=== PATIENT | female | born 1965 | race African-American/Black ===

== ENCOUNTER 2024-02-23 02:49 | Inpatient (IN) | payer MEDICARE, MEDICAID ==
[~2024-02-23] VITALS: Ht 157.5 cm; Wt 60.8 kg
[~2024-02-23 02:49] MED LIST: AMLO5TAB88 PO; COR12 PO; HYDR-4009 MT; LANTUSUD SUBCUT; LOSA50TA41 PO; METF-414 MT
[2024-02-23 02:57] VITALS: O2SAT 100
[2024-02-23 03:58] LABS: BASOPHILS % 0.9 % (0.0-2.0); EOSINOPHILS % 1.2 % (0.0-5.0); HEMATOCRIT. 36.4 % (36.0-48.0); HEMOGLOBIN. 12.1 g/dL (12.0-16.0); LYMPHOCYTES % 33.5 % (20.0-50.0); MEAN CORPUSCULAR HEMOGLOBIN 28.3 pg (28.0-32.0); MEAN CORPUSCULAR HGB CONC 33.2 g/dL (31.0-37.0); MEAN CORPUSCULAR VOLUME 85.1 fL (81.0-99.0); MEAN PLATELET VOLUME 8.8 fl (7.4-10.4); MONOCYTES % 7.9 % (2.0-8.0); NEUTROPHILS % 56.5 % (40.0-76.0); PLATELET 152 x1000/uL (130-400); RED BLOOD CELL COUNT 4.28 mill/uL (4.2-5.4); RED CELL DISTRIBUTION WIDTH 14.7 % (11.6-14.6); WHITE BLOOD COUNT 4.8 x1000/uL (4.5-11.0)
[2024-02-23 04:06] LABS: INR 0.9; PARTIAL THROMBOPLASTIN TIME 22.8 sec (23.4-31.0)
[2024-02-23 04:15] LABS: LACTIC ACID 2.7 mmol/L (0.4-2.0)
[2024-02-23 04:18] LABS: ALANINE AMINOTRANSFERASE 107 IU/L (10-49); ALBUMIN 4.3 g/dL (3.2-4.8); ASPARTATE AMINOTRANSFERASE 117 IU/L (<34); BILIRUBIN TOTAL < 0.2 mg/dL (0.1-1.0); CARBON DIOXIDE 24 mEq/L (21-32); CHLORIDE 101 mEq/L (98-107); POTASSIUM 3.9 mEq/L (3.5-5.1); PROTEIN TOTAL 7.3 g/dL (6.0-8.3); SODIUM 133 mEq/L (136-145); UREA NITROGEN BLOOD 16 mg/dL (9-23)
[2024-02-23 04:35] LABS: ETHANOL BLOOD < 10 mg/dL (<10)
[2024-02-23 04:38] LABS: GLUCOSE 403 mg/dL (70-105); TROPONIN I HIGH SENSITIVITY 51 ng/L (3.0-34)
[2024-02-23 04:43] LABS: CLARITY URINE CLOUDY (CLEAR); COLOR URINE YELLOW (YELLOW); GLUCOSE URINE 3+ (NEGATIVE); KETONES URINE NEGATIVE (NEGATIVE); LEUKOCYTE ESTERASE URINE 1+ (NEGATIVE); NITRITE URINE NEGATIVE (NEGATIVE); OCCULT BLOOD URINE 1+ (NEGATIVE); PH URINE 6.5 (4.5-8.0); PROTEIN URINE 3+ (NEGATIVE); SPECIFIC GRAVITY URINE 1.021 (1.005-1.030); UROBILINOGEN URINE 0.2 E.U./dL (0.2-1.0)
[2024-02-23 05:12] LABS: *AMPHETAMINES SCREEN URINE NEGATIVE (NEGATIVE); *BARBITURATES SCREEN URINE NEGATIVE (NEGATIVE); *BENZODIAZEPINES SCREEN URINE NEGATIVE (NEGATIVE); *COCAINE SCREEN URINE NEGATIVE (NEGATIVE); CANNABINOID URINE SCREEN NEGATIVE (NEGATIVE); ECSTASY MDMA SCREEN URINE NEGATIVE (NEGATIVE); METHADONE URINE SCREEN Neg (NEGATIVE); OPIATES URINE SCREEN NEGATIVE (NEGATIVE); PHENCYCLIDINE URINE SCREEN NEGATIVE (NEGATIVE)
[2024-02-23] MEDS: ASPIRIN 81MG TABLET PO NR (05:17)
[2024-02-23] MEDS: INSULIN REGULAR (HUMULIN R) 300UNITS/3ML VIAL SUBCUT NR ×2 (06:00→09:14)
[2024-02-23] MEDS ORDERED: IPRATROPIUM/ALBUTEROL 0.5-3(2.5)MG/3ML NEB HHN PRN (06:00)
[2024-02-23] MEDS ORDERED: ACETAMINOPHEN 325MG TABLET PO PRN ×2 (06:00→07:15)
[2024-02-23 06:23] LABS: WBC URINE TNTC /hpf (0-2)
[2024-02-23 06:24] LABS: BACTERIA URINE TRACE; SQUAMOUS EPITHELIAL CELL URINE 1+ /lpf (RARE/1+); YEAST URINE 3+
[2024-02-23] MEDS ORDERED: DEXTROSE 50% WATER 50ML SYRINGE IV PRN (06:30)
[2024-02-23] MEDS: PIPERACILLIN/TAZO 3.375G/50ML 50 ML IV SCH ×2 (07:15→13:58)
[2024-02-23 08:13] LABS: BASOPHILS % 0.5 % (0.0-2.0); EOSINOPHILS % 1.3 % (0.0-5.0); HEMATOCRIT. 34.9 % (36.0-48.0); HEMOGLOBIN. 11.6 g/dL (12.0-16.0); LYMPHOCYTES % 37.7 % (20.0-50.0); MEAN CORPUSCULAR HEMOGLOBIN 28.2 pg (28.0-32.0); MEAN CORPUSCULAR HGB CONC 33.4 g/dL (31.0-37.0); MEAN CORPUSCULAR VOLUME 84.7 fL (81.0-99.0); MEAN PLATELET VOLUME 8.3 fl (7.4-10.4); MONOCYTES % 6.8 % (2.0-8.0); NEUTROPHILS % 53.7 % (40.0-76.0); PLATELET 160 x1000/uL (130-400); RED BLOOD CELL COUNT 4.12 mill/uL (4.2-5.4); RED CELL DISTRIBUTION WIDTH 14.4 % (11.6-14.6); WHITE BLOOD COUNT 5.4 x1000/uL (4.5-11.0)
[2024-02-23 08:26] LABS: ALANINE AMINOTRANSFERASE 104 IU/L (10-49); ALBUMIN 4.1 g/dL (3.2-4.8); ASPARTATE AMINOTRANSFERASE 95 IU/L (<34); BILIRUBIN TOTAL 0.2 mg/dL (0.1-1.0); CALCIUM 8.8 mg/dL (8.7-10.4); CARBON DIOXIDE 26 mEq/L (21-32); CHLORIDE 104 mEq/L (98-107); CHOLESTEROL 182 mg/dL (<200); CREATININE 0.8 mg/dL (0.6-1.0); GLUCOSE 259 mg/dL (70-105); HDL CHOLESTEROL 43 mg/dL (>65); LDL CHOLESTEROL 115 mg/dL (5-100); PHOSPHORUS 1.9 mg/dL (2.5-4.9); POTASSIUM 3.3 mEq/L (3.5-5.1); SODIUM 135 mEq/L (136-145); T4 FREE 1.02 ng/dL (0.89-1.76); THYROID STIMULATING HORMONE 3.51 uIU/mL (0.55-4.78); TRIGLYCERIDE 199 mg/dL (0-150); UREA NITROGEN BLOOD 16 mg/dL (9-23)
[2024-02-23] MEDS: VANCOMYCIN 1.5GM/250ML 250 ML IV SCH (08:44)
[2024-02-23] MEDS: ENOXAPARIN 40MG/0.4ML SYR SUBCUT SCH (08:44)
[2024-02-23] MEDS: LOSARTAN 50 MG TABLET PO SCH (08:44)
[2024-02-23] MEDS: PANTOPRAZOLE SODIUM 40 MG/VIAL IV SCH (08:44)
[2024-02-23] MEDS: AMLODIPINE 5MG TABLET PO SCH (08:44)
[2024-02-23] MEDS: BLOOD SUGAR DIAGNOSTIC STRIP TEST SCH (08:45)
[2024-02-23] MEDS: INSULIN LISPRO 100 UNITS/ML SUBCUT SCH ×2 (09:10→18:36)
[2024-02-23] MEDS: SODIUM CHLORIDE 0.9% 1,000 ML IV SCH (11:01)
[2024-02-23] MEDS: CLONIDINE 0.1MG TABLET PO PRN (11:25)
[2024-02-23] MEDS: KETOROLAC 15MG/ML VIAL IV PRN ×2 (11:25→18:35)
[2024-02-23 13:30] VITALS: BP 173/90; PULSE 78; RESP 20; TEMP 97.9; TEMP 98.2
[2024-02-23 16:00] VITALS: BP 140/81; PULSE 82; RESP 20; TEMP 97.9
[2024-02-23] MEDS: POTASSIUM CHLORIDE 20MEQ TABLET SR PO NR (18:32)
[2024-02-23 20:00] VITALS: BP 137/77; PULSE 81; RESP 19; TEMP 99.1
[2024-02-23 21:06] LABS: CREATINE KINASE MB FRACTION 3.9 ng/mL (0.5-3.6)
[2024-02-23] MEDS: MAGNESIUM 2 G PREMIX 50 ML IV NR (21:34)
[2024-02-23] MEDS: VANCOMYCIN 750MG PREMIX 150 ML IV SCH (21:34)
[2024-02-23] MEDS ORDERED: INSULIN GLARGINE 100 UNITS/ML SUBCUT SCH (22:00)
[2024-02-23] MEDS: INSULIN GLARGINE 100 UNITS/ML SUBCUT SCH (22:08)
[2024-02-23] MEDS: POTASSIUM PHOSPHATE 15 MMOL in DEXT 5% WATER 245 ML IV NR (23:04)
[2024-02-24] VITALS (7 sets, daily range): BP systolic 101–195; BP diastolic 51–103; PULSE 71–88; RESP 18–20; TEMP 97.1–99
[2024-02-24 12:12] LABS: CREATINE KINASE MB FRACTION 2.9 ng/mL (0.5-3.6)
[2024-02-24] MEDS: HYDRALAZINE HCL 25MG TABLET PO SCH (18:26)
[2024-02-24] MEDS: ASPIRIN 81MG TABLET PO SCH (18:26)
[2024-02-24] MEDS: FLUCONAZOLE 150MG TABLET PO NR (19:35)
[2024-02-24 21:14] LABS: CHLORIDE 105 mEq/L (98-107); POTASSIUM 4.5 mEq/L (3.5-5.1); SODIUM 135 mEq/L (136-145)
[2024-02-24 21:15] LABS: CALCIUM 8.6 mg/dL (8.7-10.4); CARBON DIOXIDE 26 mEq/L (21-32)
[2024-02-24 21:20] LABS: CREATININE 0.9 mg/dL (0.6-1.0); GLUCOSE 85 mg/dL (70-105); UREA NITROGEN BLOOD 22 mg/dL (9-23)
[2024-02-24 21:21] LABS: ALANINE AMINOTRANSFERASE 68 IU/L (10-49); ASPARTATE AMINOTRANSFERASE 55 IU/L (<34)
[2024-02-24 21:22] LABS: ALBUMIN 3.5 g/dL (3.2-4.8); BILIRUBIN TOTAL 0.2 mg/dL (0.1-1.0); PROTEIN TOTAL 6.1 g/dL (6.0-8.3)
[2024-02-24] MEDS: ATORVASTATIN CALCIUM 40MG TABLET PO SCH (21:36)
[2024-02-24] MEDS: CARVEDILOL 3.125 MG TABLET PO SCH (21:36)
[2024-02-24] MEDS: INSULIN GLARGINE 100 UNITS/ML SUBCUT SCH (23:54)
[2024-02-25] VITALS: BP 170/83; PULSE 77; RESP 16; TEMP 97.1
[2024-02-25 04:00] VITALS: BP 164/81; PULSE 83; RESP 19; TEMP 97.5
[2024-02-25 06:21] LABS: BASOPHILS % 0.3 % (0.0-2.0); EOSINOPHILS % 1.3 % (0.0-5.0); HEMATOCRIT. 32.3 % (36.0-48.0); HEMOGLOBIN. 10.9 g/dL (12.0-16.0); LYMPHOCYTES % 28.2 % (20.0-50.0); MEAN CORPUSCULAR HEMOGLOBIN 29.1 pg (28.0-32.0); MEAN CORPUSCULAR HGB CONC 33.9 g/dL (31.0-37.0); MEAN PLATELET VOLUME 8.4 fl (7.4-10.4); MONOCYTES % 7.9 % (2.0-8.0); NEUTROPHILS % 62.3 % (40.0-76.0); PLATELET 172 x1000/uL (130-400); RED BLOOD CELL COUNT 3.75 mill/uL (4.2-5.4); WHITE BLOOD COUNT 4.5 x1000/uL (4.5-11.0)
[2024-02-25 06:43] LABS: CHLORIDE 103 mEq/L (98-107); POTASSIUM 4.7 mEq/L (3.5-5.1); SODIUM 135 mEq/L (136-145)
[2024-02-25 06:51] LABS: CARBON DIOXIDE 26 mEq/L (21-32)
[2024-02-25 06:52] LABS: CALCIUM 8.9 mg/dL (8.7-10.4); UREA NITROGEN BLOOD 22 mg/dL (9-23)
[2024-02-25 06:54] LABS: BILIRUBIN TOTAL 0.2 mg/dL (0.1-1.0); PROTEIN TOTAL 5.9 g/dL (6.0-8.3)
[2024-02-25 06:58] LABS: ALANINE AMINOTRANSFERASE 63 IU/L (10-49); ASPARTATE AMINOTRANSFERASE 43 IU/L (<34); GLUCOSE 289 mg/dL (70-105)
[2024-02-25 06:59] LABS: ALBUMIN 3.4 g/dL (3.2-4.8)
[2024-02-25 07:00] LABS: PHOSPHORUS 3.9 mg/dL (2.5-4.9)
[2024-02-25 08:13] VITALS: BP 183/90; PULSE 78; RESP 18; TEMP 98
[2024-02-25] MEDS: FAMOTIDINE 20MG/2ML VIAL IV SCH (08:49)
[2024-02-25] MEDS: VANCOMYCIN 750MG PREMIX 150 ML IV SCH (08:50)
[2024-02-25] MEDS: FLUCONAZOLE 100MG TABLET PO SCH (08:51)
[2024-02-25 12:22] VITALS: BP 163/85; PULSE 76; RESP 18; TEMP 97.6
[2024-02-25] MEDS: INSULIN LISPRO 100 UNITS/ML SUBCUT SCH (13:31)
[2024-02-25 16:06] VITALS: BP 137/75; PULSE 80; RESP 18; TEMP 98.7
[2024-02-25] MEDS ORDERED: AMLODIPINE 5MG TABLET PO SCH (21:00)
[2024-02-25] MEDS ORDERED: INSULIN GLARGINE 100 UNITS/ML SUBCUT SCH (22:00)
[2024-02-26] MEDS ORDERED: VANCOMYCIN 1GM/200ML PMX (BAXTER) IV SCH (06:00)
[2024-02-26] MEDS ORDERED: AMLODIPINE 10MG TABLET PO SCH (09:00)
== END 2024-02-26 04:55 | disposition left against medical advice (07) | DRG 871 ==
LOC: ER 03:10 → 5EST 05:37 → EDBEDREQ 05:43 → EDBEDREQTM 05:43 → 7WST 12:21
PROVIDERS: ADMIT Internal Medicine; ATTEND Internal Medicine
DX: A41.9 Sepsis, unspecified organism (principal); I21.4 Non-ST elevation (NSTEMI) myocardial infarction; N39.0 Urinary tract infection, site not specified; E87.1 Hypo-osmolality and hyponatremia; N13.30 Unspecified hydronephrosis; I16.0 Hypertensive urgency; B19.20 Unspecified viral hepatitis C without hepatic coma; C50.919 Malignant neoplasm of unspecified site of unspecified female breast; E11.65 Type 2 diabetes mellitus with hyperglycemia; J44.9 Chronic obstructive pulmonary disease, unspecified; E83.42 Hypomagnesemia; E87.6 Hypokalemia; F17.210 Nicotine dependence, cigarettes, uncomplicated; G89.3 Neoplasm related pain (acute) (chronic); I11.0 Hypertensive heart disease with heart failure; I50.9 Heart failure, unspecified; K76.0 Fatty (change of) liver, not elsewhere classified; Z53.29 Procedure and treatment not carried out because of patient's decision for other reasons; Z79.899 Other long term (current) drug therapy; Z90.13 Acquired absence of bilateral breasts and nipples; Z90.49 Acquired absence of other specified parts of digestive tract; Z91.148 Patient's other noncompliance with medication regimen for other reason; I25.2 Old myocardial infarction; H54.7 Unspecified visual loss
CPT/HCPCS: 36415; 71045; 76700; 80053; 80061; 80202; 80305; 80320; 81003; 82550; 82553; 82962; 83036; 83605; 83735; 83880; 83930; 84100; 84439; 84443; 84484; 85025; 85379; 87106; 93005; 97162; 97166; 97530; 97535; 99285; C9113; J1650; J1815; J1885; J2543; J3370; J3475; J3490; J7060; G0480

== ENCOUNTER 2024-04-20 05:10 | Emergency (ER) | payer MEDICARE, MEDICAID ==
[~2024-04-20] VITALS: Ht 170.2 cm; Wt 55.0 kg
[2024-04-20 05:11] VITALS: O2SAT 98
[2024-04-20] MEDS ORDERED: OXYC10TA48 MT (05:25)
[2024-04-20] MEDS: OXYCODONE HCL 10MG TABLET SR 12HR PO ONE (05:48)
[2024-04-20 13:47] VITALS: BP 150/80; PULSE 68; RESP 16; TEMP 98.2
== END 2024-04-20 13:48 | disposition home or self-care (01) ==
LOC: ER 05:10
DX: G89.3 Neoplasm related pain (acute) (chronic) (principal); I10 Essential (primary) hypertension; J44.1 Chronic obstructive pulmonary disease with (acute) exacerbation
CPT/HCPCS: 99283

== ENCOUNTER 2024-07-05 19:45 | Emergency (ER) | payer MEDICARE, MEDICAID ==
[~2024-07-05] VITALS: Ht 160 cm; Wt 64.0 kg
[~2024-07-05 19:45] MED LIST changes: +OXYC10TA48 MT
[2024-07-05 19:55] VITALS: O2SAT 98
[2024-07-05] MEDS: AMLODIPINE 5MG TABLET PO ONE (20:30)
[2024-07-05] MEDS: LOSARTAN 50 MG TABLET PO ONE (20:30)
[2024-07-05] MEDS: HYDROCODONE/ACETAMINOPHEN 10/325MG TABLET PO ONE (20:30)
[2024-07-05] MEDS: CARVEDILOL 6.25 MG TABLET PO ONE (22:30)
[2024-07-06 10:34] VITALS: BP 160/95; PULSE 85; RESP 18; TEMP 36.72516; O2SAT 99
[2024-07-17] MEDS ORDERED: ATOR20TA PO (15:11)
== END 2024-07-06 10:35 | disposition home or self-care (01) ==
LOC: ER 19:45
DX: N64.4 Mastodynia (principal); J44.9 Chronic obstructive pulmonary disease, unspecified; E11.9 Type 2 diabetes mellitus without complications; I10 Essential (primary) hypertension; Z85.9 Personal history of malignant neoplasm, unspecified; Z79.899 Other long term (current) drug therapy
CPT/HCPCS: 99285

== ENCOUNTER 2024-07-11 22:44 | Inpatient (IN) | payer MEDICARE, MEDICAID ==
[~2024-07-11] VITALS: Ht 162.6 cm; Wt 58.7 kg
[2024-07-11 23:18] LABS: BASOPHILS % 0.6 % (0.0-2.0); EOSINOPHILS % 1.2 % (0.0-5.0); HEMATOCRIT. 32.1 % (36.0-48.0); HEMOGLOBIN. 10.8 g/dL (12.0-16.0); LYMPHOCYTES % 32.6 % (20.0-50.0); MEAN CORPUSCULAR HEMOGLOBIN 29.4 pg (28.0-32.0); MEAN CORPUSCULAR HGB CONC 33.7 g/dL (31.0-37.0); MEAN CORPUSCULAR VOLUME 87.2 fL (81.0-99.0); MEAN PLATELET VOLUME 8.1 fl (7.4-10.4); MONOCYTES % 7.7 % (2.0-8.0); NEUTROPHILS % 57.9 % (40.0-76.0); PLATELET 180 x1000/uL (130-400); RED BLOOD CELL COUNT 3.67 mill/uL (4.2-5.4); RED CELL DISTRIBUTION WIDTH 14.8 % (11.6-14.6); WHITE BLOOD COUNT 5.3 x1000/uL (4.5-11.0)
[2024-07-11 23:28] LABS: INR 0.9; PARTIAL THROMBOPLASTIN TIME 24.9 sec (23.4-31.0)
[2024-07-11 23:39] LABS: CHLORIDE 104 mEq/L (98-107); SODIUM 137 mEq/L (136-145)
[2024-07-11 23:40] LABS: CALCIUM 8.9 mg/dL (8.7-10.4); CARBON DIOXIDE 26 mEq/L (21-32)
[2024-07-11 23:45] LABS: CREATININE 1.1 mg/dL (0.6-1.0); GLUCOSE 334 mg/dL (70-105); UREA NITROGEN BLOOD 15 mg/dL (9-23)
[2024-07-12 00:06] LABS: ETHANOL BLOOD < 10 mg/dL (<10)
[2024-07-12 00:08] LABS: POTASSIUM 2.8 mEq/L (3.5-5.1); TROPONIN I HIGH SENSITIVITY 41 ng/L (3.0-34)
[2024-07-12 00:10] VITALS: PULSE 69; RESP 20; O2SAT 98
[2024-07-12] MEDS: ALBUTEROL (0.083%) 2.5MG/3ML NEB HHN ONE (00:10)
[2024-07-12] MEDS: HYDRALAZINE 20MG/ML VIAL IV ONE (00:12)
[2024-07-12] MEDS: ACETAMINOPHEN 1000MG/100ML 100 ML IV NR (00:17)
[2024-07-12] MEDS: POTASSIUM CHLORIDE 20MEQ/PACKET PO ONE (00:43)
[2024-07-12] MEDS: KCL 20MEQ/100ML PREMIX 100 ML IV ONE (00:43)
[2024-07-12] MEDS: INSULIN REGULAR (HUMULIN R) 1000UNITS/10ML VIAL SUBCUT NR (01:14)
[2024-07-12 06:10] VITALS: BP 162/79; PULSE 71; RESP 18; TEMP 36.72516; O2SAT 99
[2024-07-12] MEDS: BUDESONIDE 0.5MG/2ML NEB HHN SCH (07:54)
[2024-07-12 08:00] VITALS: BP_SYST 162; BP_SYST 178; BP_DIAS 102; BP_DIAS 79; PULSE 68; PULSE 71; RESP 18; TEMP 36.61404; TEMP 36.7516
[2024-07-12] MEDS ORDERED: ONDANSETRON HCL 4MG/2ML INJ IV PRN (10:00)
[2024-07-12] MEDS ORDERED: DIPHENHYDRAMINE 50MG/ML VIAL IV PRN (10:00)
[2024-07-12] MEDS ORDERED: MAGNESIUM HYDROXIDE 400MG/5ML 30ML UDC PO PRN (10:00)
[2024-07-12] MEDS ORDERED: MAGNESIUM/ALUMINUM HYDROXIDE/SIMETHICONE 30ML UDC PO PRN (10:00)
[2024-07-12] MEDS ORDERED: CLONIDINE 0.1MG TABLET PO PRN (10:00)
[2024-07-12] MEDS ORDERED: ZOLPIDEM TARTRATE 5MG TABLET PO PRN (10:00)
[2024-07-12] MEDS ORDERED: ACETAMINOPHEN 325MG TABLET PO PRN (10:00)
[2024-07-12] MEDS ORDERED: GUAIFENESIN 200MG/10ML SUGAR FREE UDC PO PRN (10:00)
[2024-07-12] MEDS ORDERED: BISACODYL 10MG SUPP PR PRN (10:00)
[2024-07-12] MEDS ORDERED: DEXTROSE 50% WATER 50ML SYRINGE IV PRN (10:00)
[2024-07-12] MEDS ORDERED: IPRATROPIUM/ALBUTEROL 0.5-3(2.5)MG/3ML NEB HHN PRN (10:00)
[2024-07-12] MEDS: POTASSIUM CHLORIDE 20MEQ TABLET SR PO SCH (11:07)
[2024-07-12] MEDS: BLOOD SUGAR DIAGNOSTIC STRIP TEST SCH (11:40)
[2024-07-12 12:00] VITALS: BP 178/79; PULSE 79; RESP 18; TEMP 36.61404
[2024-07-12] MEDS: SODIUM CHLORIDE 0.9% 3ML FLUSH IVF SCH (14:00)
[2024-07-12 16:00] VITALS: BP 195/90; PULSE 79; RESP 18; TEMP 36.72516; O2SAT 100
[2024-07-12] MEDS: ACETAMINOPHEN 325MG TABLET PO PRN (16:35)
[2024-07-12] MEDS: INSULIN LISPRO 100 UNITS/ML SUBCUT SCH (16:56)
[2024-07-12] MEDS: METFORMIN HCL 500MG TABLET PO SCH (17:10)
[2024-07-12 20:00] VITALS: BP 172/82; PULSE 79; RESP 20; TEMP 36.78072; O2SAT 100
[2024-07-12] MEDS: ENOXAPARIN 40MG/0.4ML SYR SUBCUT SCH (20:31)
[2024-07-12] MEDS: DOCUSATE SODIUM 100MG CAPSULE PO SCH (22:43)
[2024-07-12] MEDS: LOSARTAN 50 MG TABLET PO SCH (22:43)
[2024-07-12] MEDS: HYDROCODONE/ACETAMINOPHEN 10/325MG TABLET PO PRN (22:43)
[2024-07-12] MEDS: PANTOPRAZOLE 40MG DR TABLET PO SCH (22:44)
[2024-07-12] MEDS: HYDRALAZINE HCL 25MG TABLET PO SCH (22:44)
[2024-07-12] MEDS: INSULIN GLARGINE 100 UNITS/ML SUBCUT SCH (22:49)
[2024-07-13 00:09] VITALS: PULSE 76; RESP 18; O2SAT 97
[2024-07-13] MEDS: IPRATROPIUM/ALBUTEROL 0.5-3(2.5)MG/3ML NEB HHN SCH (00:09)
[2024-07-13 03:37] VITALS: BP 156/70; PULSE 85; RESP 20; TEMP 36.3918; O2SAT 100
[2024-07-13 04:38] VITALS: PULSE 80; RESP 18; O2SAT 97
[2024-07-13] MEDS: HYDRALAZINE 20MG/ML VIAL IV PRN (05:58)
[2024-07-13 08:00] VITALS: BP 155/78; PULSE 95; RESP 20; TEMP 36.61404; O2SAT 99
[2024-07-13] MEDS: LORATADINE 10MG TABLET PO SCH (08:34)
[2024-07-13 12:00] VITALS: BP 133/62; PULSE 87; RESP 18; TEMP 36.55848; O2SAT 99
[2024-07-17] MEDS ORDERED: ATOR20TA PO (15:11)
== END 2024-07-13 12:30 | disposition left against medical advice (07) | DRG 641 ==
LOC: ER 22:44 → EDBEDREQ 07-12 01:43 → 5WST 07-12 04:37 → 7EST 07-12 05:45
PROVIDERS: ADMIT Internal Medicine; ATTEND Internal Medicine
DX: E87.6 Hypokalemia (principal); J44.1 Chronic obstructive pulmonary disease with (acute) exacerbation; E11.9 Type 2 diabetes mellitus without complications; I10 Essential (primary) hypertension; I25.10 Atherosclerotic heart disease of native coronary artery without angina pectoris; Z53.29 Procedure and treatment not carried out because of patient's decision for other reasons; Z20.822 Contact with and (suspected) exposure to COVID-19; Z85.3 Personal history of malignant neoplasm of breast; Z87.891 Personal history of nicotine dependence; Z99.81 Dependence on supplemental oxygen; Z79.899 Other long term (current) drug therapy
CPT/HCPCS: 36415; 71045; 80048; 80320; 82962; 83880; 84484; 85025; 87426; 93005; 94640; 99285; J0360; J1650; J1815; J3480; J7626; G0480; J0131

== ENCOUNTER 2024-08-20 05:25 | Inpatient (IN) | payer OTHER, MEDICAID ==
[~2024-08-20] VITALS: Ht 157.5 cm; Wt 59.9 kg
[~2024-08-20 05:25] MED LIST changes: +ATOR20TA PO; -HYDR-4009 MT; +NITR0.4T49 SL
[2024-08-20 05:52] LABS: EOSINOPHILS % 3.5 % (0.0-5.0); HEMOGLOBIN. 10.9 g/dL (12.0-16.0); LYMPHOCYTES % 28.7 % (20.0-50.0); MEAN CORPUSCULAR HEMOGLOBIN 29.3 pg (28.0-32.0); MEAN CORPUSCULAR HGB CONC 33.1 g/dL (31.0-37.0); MEAN CORPUSCULAR VOLUME 88.4 fL (81.0-99.0); MEAN PLATELET VOLUME 8.2 fl (7.4-10.4); MONOCYTES % 5.1 % (2.0-8.0); NEUTROPHILS % 61.7 % (40.0-76.0); PLATELET 178 x1000/uL (130-400); RED BLOOD CELL COUNT 3.73 mill/uL (4.2-5.4); RED CELL DISTRIBUTION WIDTH 13.4 % (11.6-14.6); WHITE BLOOD COUNT 7.4 x1000/uL (4.5-11.0)
[2024-08-20 06:00] VITALS: PULSE 105; RESP 22; O2SAT 100
[2024-08-20] MEDS: ALBUTEROL (0.083%) 2.5MG/3ML NEB HHN STA (06:00)
[2024-08-20] MEDS: IPRATROPIUM BROMIDE (0.02%) 0.5MG/2.5ML NEB HHN STA (06:00)
[2024-08-20 06:01] LABS: CHLORIDE 110 mEq/L (98-107); POTASSIUM 4.1 mEq/L (3.5-5.1); SODIUM 142 mEq/L (136-145)
[2024-08-20 06:02] LABS: CALCIUM 9.6 mg/dL (8.7-10.4); CARBON DIOXIDE 25 mEq/L (21-32)
[2024-08-20 06:07] LABS: GLUCOSE 204 mg/dL (70-105); UREA NITROGEN BLOOD 16 mg/dL (9-23)
[2024-08-20] MEDS: METHYLPREDNISOLONE SOD SUCC 125MG/2ML (ACT-O-VIAL) IV STA (06:11)
[2024-08-20 06:16] LABS: TROPONIN I HIGH SENSITIVITY 45 ng/L (3.0-34)
[2024-08-20] MEDS: HYDRALAZINE 20MG/ML VIAL IV ONE (07:37)
[2024-08-20] MEDS: LORAZEPAM 0.5MG TABLET PO ONE (07:38)
[2024-08-20] MEDS: ASPIRIN 81MG TABLET PO ONE (08:36)
[2024-08-20] MEDS ORDERED: MAGNESIUM/ALUMINUM HYDROXIDE/SIMETHICONE 30ML UDC PO PRN (10:30)
[2024-08-20] MEDS ORDERED: DOCUSATE SODIUM 100MG CAPSULE PO PRN (10:30)
[2024-08-20] MEDS ORDERED: IPRATROPIUM/ALBUTEROL 0.5-3(2.5)MG/3ML NEB NEB PRN (10:30)
[2024-08-20] MEDS ORDERED: NITROGLYCERIN 0.4MG TABLET SL SL PRN (10:30)
[2024-08-20] MEDS ORDERED: DEXTROSE 50% WATER 50ML SYRINGE IV PRN (10:30)
[2024-08-20] MEDS ORDERED: ACETAMINOPHEN 325MG TABLET PO PRN ×2 (10:30)
[2024-08-20] MEDS ORDERED: ONDANSETRON HCL 4MG/2ML INJ IV PRN (10:30)
[2024-08-20 11:08] LABS: IRON 32 ug/dL (50-170)
[2024-08-20 11:09] LABS: LDL CHOLESTEROL 104 mg/dL (5-100); TRIGLYCERIDE 157 mg/dL (0-150)
[2024-08-20 11:10] LABS: HDL CHOLESTEROL 28 mg/dL (>65)
[2024-08-20 11:11] LABS: CHOLESTEROL 154 mg/dL (<200); TOTAL IRON BINDING CAPACITY 331 ug/dl (250-425)
[2024-08-20 11:13] LABS: T4 FREE 1.17 ng/dL (0.89-1.76); THYROID STIMULATING HORMONE 0.58 uIU/mL (0.55-4.78)
[2024-08-20 11:36] LABS: FOLIC ACID (FOLATE) SERUM 17.56 ng/mL (>5.38); VITAMIN B12 SERUM 774 pg/mL (211-911)
[2024-08-20] MEDS: AZITHROMYCIN 500MG/250ML 250 ML IV SCH (12:18)
[2024-08-20] MEDS: LOSARTAN 50 MG TABLET PO SCH (12:19)
[2024-08-20] MEDS: ENOXAPARIN 40MG/0.4ML SYR SUBCUT SCH (12:20)
[2024-08-20] MEDS: BLOOD SUGAR DIAGNOSTIC STRIP TEST SCH (13:00)
[2024-08-20] MEDS: INSULIN LISPRO 100 UNITS/ML SUBCUT SCH (14:38)
[2024-08-20] MEDS: METHYLPREDNISOLONE SOD SUCC 125MG/2ML (ACT-O-VIAL) IV SCH (14:39)
[2024-08-20] MEDS: AMLODIPINE 10MG TABLET PO SCH (15:18)
[2024-08-20] MEDS: CARVEDILOL 3.125 MG TABLET PO SCH (18:22)
[2024-08-20 21:01] LABS: CREATINE KINASE MB FRACTION 4.7 ng/mL (0.5-3.6)
[2024-08-20 23:00] VITALS: BP 185/93; PULSE 90; RESP 18; TEMP 36.7516
[2024-08-20] MEDS: FUROSEMIDE 40MG/4ML VIAL IVP SCH (23:48)
[2024-08-20] MEDS: CLONIDINE 0.1MG TABLET PO PRN (23:49)
[2024-08-20] MEDS: FAMOTIDINE 20MG TABLET PO SCH (23:50)
[2024-08-20] MEDS: SPIRONOLACTONE 25MG TABLET PO SCH (23:50)
[2024-08-20] MEDS: ZOLPIDEM TARTRATE 5MG TABLET PO PRN (23:50)
[2024-08-20] MEDS: GUAIFENESIN 200MG/10ML SUGAR FREE UDC PO PRN (23:51)
[2024-08-20] MEDS: GUAIFENESIN 600MG ER TABLET PO SCH (23:54)
[2024-08-21] VITALS: BP 185/63; PULSE 90; RESP 18; TEMP 36.72516; O2SAT 100
[2024-08-21] MEDS: INSULIN GLARGINE 100 UNITS/ML SUBCUT SCH ×2 (00:07→22:15)
[2024-08-21 04:00] VITALS: BP 178/75; PULSE 88; TEMP 37.00296
[2024-08-21] MEDS: IPRATROPIUM/ALBUTEROL 0.5-3(2.5)MG/3ML NEB HHN SCH (07:52)
[2024-08-21 08:00] VITALS: BP 165/79; PULSE 77; RESP 18; TEMP 36.61404; O2SAT 98
[2024-08-21] MEDS: CLONIDINE 0.1MG TABLET PO SCH (08:00)
[2024-08-21] MEDS: ASPIRIN 81MG EC TABLET PO SCH (08:17)
[2024-08-21] MEDS: AMLODIPINE 10MG TABLET PO SCH (08:21)
[2024-08-21 12:00] VITALS: BP 153/78; PULSE 84; RESP 18; TEMP 36.50292; O2SAT 100
[2024-08-21] MEDS: AZITHROMYCIN 500MG/250ML 250 ML IV SCH (12:22)
[2024-08-21] MEDS: INSULIN LISPRO 100 UNITS/ML SUBCUT SCH (12:23)
[2024-08-21] MEDS: KETOROLAC 15MG/ML VIAL IV PRN (15:07)
[2024-08-21 15:11] LABS: HEMATOCRIT. 28.1 % (36.0-48.0); HEMOGLOBIN. 8.9 g/dL (12.0-16.0); MEAN CORPUSCULAR HEMOGLOBIN 28.2 pg (28.0-32.0); MEAN CORPUSCULAR HGB CONC 31.7 g/dL (31.0-37.0); MEAN CORPUSCULAR VOLUME 88.9 fL (81.0-99.0); PLATELET 156 x1000/uL (130-400); RED BLOOD CELL COUNT 3.16 mill/uL (4.2-5.4); RED CELL DISTRIBUTION WIDTH 13.7 % (11.6-14.6); WHITE BLOOD COUNT 11.9 x1000/uL (4.5-11.0)
[2024-08-21 15:18] LABS: CHLORIDE 102 mEq/L (98-107); DIFFERENTIAL COMMENT 1; POTASSIUM 3.8 mEq/L (3.5-5.1)
[2024-08-21 15:19] LABS: CARBON DIOXIDE 23 mEq/L (21-32)
[2024-08-21 15:24] LABS: CREATINE KINASE MB FRACTION 2.9 ng/mL (0.5-3.6); CREATININE 1.3 mg/dL (0.6-1.0); TROPONIN I HIGH SENSITIVITY 28 ng/L (3.0-34); UREA NITROGEN BLOOD 34 mg/dL (9-23)
[2024-08-21 15:26] LABS: ALANINE AMINOTRANSFERASE 18 IU/L (10-49); ALBUMIN 3.6 g/dL (3.2-4.8); ASPARTATE AMINOTRANSFERASE 24 IU/L (<34); BILIRUBIN TOTAL < 0.2 mg/dL (0.1-1.0); CREATINE KINASE 45 IU/L (34-145); PHOSPHORUS 4.2 mg/dL (2.5-4.9)
[2024-08-21 15:43] LABS: SODIUM 133 mEq/L (136-145)
[2024-08-21 15:44] LABS: GLUCOSE 435 mg/dL (70-105)
[2024-08-21 16:00] VITALS: BP 146/78; PULSE 85; RESP 18; TEMP 37.11408; O2SAT 100
[2024-08-21 18:07] LABS: PLATELET ESTIMATE NORMAL
[2024-08-21] MEDS: FUROSEMIDE 40MG/4ML VIAL IVP SCH (18:08)
[2024-08-21 20:00] VITALS: BP 163/83; PULSE 83; RESP 20; TEMP 37.55856; O2SAT 100
[2024-08-21] MEDS: AMLODIPINE 5MG TABLET PO SCH (22:10)
[2024-08-21] MEDS: ATORVASTATIN CALCIUM 20MG TABLET PO SCH (22:10)
[2024-08-22] VITALS (9 sets, daily range): BP systolic 157–162; BP diastolic 75–80; PULSE 72–92; RESP 16–20; TEMP 36.50292–37.39188; O2SAT 97–100
[2024-08-22 06:59] LABS: CARBON DIOXIDE 27 mEq/L (21-32); CHLORIDE 101 mEq/L (98-107); POTASSIUM 3.8 mEq/L (3.5-5.1); SODIUM 135 mEq/L (136-145)
[2024-08-22 07:00] LABS: CALCIUM 9.1 mg/dL (8.7-10.4)
[2024-08-22 07:05] LABS: CREATININE 1.1 mg/dL (0.6-1.0); GLUCOSE 316 mg/dL (70-105); UREA NITROGEN BLOOD 35 mg/dL (9-23)
[2024-08-22 07:06] LABS: HEMATOCRIT. 29.1 % (36.0-48.0); HEMOGLOBIN. 9.4 g/dL (12.0-16.0); MEAN CORPUSCULAR HGB CONC 32.2 g/dL (31.0-37.0); MEAN CORPUSCULAR VOLUME 87.2 fL (81.0-99.0); PLATELET 154 x1000/uL (130-400); RED BLOOD CELL COUNT 3.34 mill/uL (4.2-5.4); RED CELL DISTRIBUTION WIDTH 13.3 % (11.6-14.6); WHITE BLOOD COUNT 11.3 x1000/uL (4.5-11.0)
[2024-08-22 07:56] LABS: DIFFERENTIAL COMMENT 1
[2024-08-22 08:26] LABS: TROPONIN I HIGH SENSITIVITY 35 ng/L (3.0-34)
[2024-08-22] MEDS: METHYLPREDNISOLONE SOD SUCC 40MG/ML (ACT-O-VIAL) IV SCH (13:12)
[2024-08-22 14:48] LABS: PLATELET ESTIMATE MARKEDLY INCREASED
[2024-08-22] MEDS: CLONIDINE 0.2MG TABLET PO SCH (22:52)
[2024-08-23 00:57] VITALS: PULSE 78; RESP 20; O2SAT 96
[2024-08-23 04:00] VITALS: BP 157/81; PULSE 72; RESP 17; TEMP 36.61404; O2SAT 99
[2024-08-23 04:08] VITALS: PULSE 73; RESP 18; O2SAT 98
[2024-08-23 08:00] VITALS: BP 146/79; PULSE 74; RESP 18; TEMP 36.50292; O2SAT 99
[2024-08-23 08:34] VITALS: PULSE 76; RESP 16; O2SAT 98
[2024-08-23] MEDS ORDERED: NITR0.4T49 SL (09:27)
[2024-08-23] MEDS ORDERED: INSLIS SUBCUT (09:27)
[2024-08-23] MEDS ORDERED: ALBU90AE INH (09:27)
[2024-08-23] MEDS ORDERED: LANTUSUD SUBCUT (09:27)
[2024-08-23] MEDS ORDERED: P20 MT (09:27)
[2024-08-23] MEDS ORDERED: AZIT500T MT (09:27)
[2024-08-23 11:26] VITALS: BP 146/79; PULSE 74; TEMP 97.7; O2SAT 98
== END 2024-08-23 14:42 | disposition home or self-care (01) | DRG 280 ==
LOC: ER 05:33 → 8WST 07:47 → EDBEDREQ 07:50
PROVIDERS: ADMIT Internal Medicine; ATTEND Internal Medicine
DX: I21.4 Non-ST elevation (NSTEMI) myocardial infarction (principal); J96.01 Acute respiratory failure with hypoxia; J44.1 Chronic obstructive pulmonary disease with (acute) exacerbation; I16.1 Hypertensive emergency; I11.0 Hypertensive heart disease with heart failure; D63.8 Anemia in other chronic diseases classified elsewhere; I50.9 Heart failure, unspecified; E11.65 Type 2 diabetes mellitus with hyperglycemia; E78.1 Pure hyperglyceridemia; Z91.040 Latex allergy status; Z86.73 Personal history of transient ischemic attack (TIA), and cerebral infarction without residual deficits; Z85.3 Personal history of malignant neoplasm of breast; Z79.82 Long term (current) use of aspirin
CPT/HCPCS: 36415; 71045; 80048; 80053; 80061; 82550; 82553; 82607; 82746; 82962; 83036; 83540; 83550; 83605; 83735; 83880; 84100; 84145; 84439; 84443; 84484; 85025; 93005; 93306; 93970; 94640; 99291; J0360; J0456; J1650; J1815; J1885; J1940; J2919; J2920

== ENCOUNTER 2024-09-01 08:19 | Inpatient (IN) | payer MEDICARE, MEDICAID ==
[~2024-09-01] VITALS: Ht 157.5 cm; Wt 62.6 kg
[~2024-09-01 08:19] MED LIST changes: +ALBU90AE INH; +AZIT500T MT; +INSLIS SUBCUT; -OXYC10TA48 MT; +P20 MT
[2024-09-01 09:19] LABS: BASOPHILS % 0.2 % (0.0-2.0); EOSINOPHILS % 0.9 % (0.0-5.0); HEMATOCRIT. 29.9 % (36.0-48.0); HEMOGLOBIN. 9.7 g/dL (12.0-16.0); LYMPHOCYTES % 32.6 % (20.0-50.0); MEAN CORPUSCULAR HEMOGLOBIN 29.4 pg (28.0-32.0); MEAN CORPUSCULAR HGB CONC 32.4 g/dL (31.0-37.0); MEAN CORPUSCULAR VOLUME 90.9 fL (81.0-99.0); MEAN PLATELET VOLUME 8.8 fl (7.4-10.4); MONOCYTES % 7.6 % (2.0-8.0); NEUTROPHILS % 58.7 % (40.0-76.0); PLATELET 161 x1000/uL (130-400); RED BLOOD CELL COUNT 3.28 mill/uL (4.2-5.4); RED CELL DISTRIBUTION WIDTH 13.4 % (11.6-14.6); WHITE BLOOD COUNT 7.6 x1000/uL (4.5-11.0)
[2024-09-01 09:37] LABS: CHLORIDE 108 mEq/L (98-107); POTASSIUM 3.8 mEq/L (3.5-5.1); SODIUM 139 mEq/L (136-145)
[2024-09-01 09:38] LABS: CARBON DIOXIDE 23 mEq/L (21-32); INR 0.9; PROTHROMBIN TIME 10.5 sec (9.6-11.0)
[2024-09-01 09:39] LABS: CALCIUM 8.7 mg/dL (8.7-10.4)
[2024-09-01 09:43] LABS: CREATININE 1.1 mg/dL (0.6-1.0); GLUCOSE 254 mg/dL (70-105); UREA NITROGEN BLOOD 19 mg/dL (9-23)
[2024-09-01 10:32] LABS: TROPONIN I HIGH SENSITIVITY 36 ng/L (3.0-34)
[2024-09-01] MEDS: ASPIRIN 325MG TABLET PO ONE (10:45)
[2024-09-01] MEDS: NITROGLYCERIN OINT 1GM/INCH UDPKT TD ONE (13:00)
[2024-09-01 14:25] LABS: TROPONIN I HIGH SENSITIVITY 41 ng/L (3.0-34)
[2024-09-01 15:39] VITALS: BP 178/79; PULSE 73; RESP 16; O2SAT 100
[2024-09-01] MEDS ORDERED: ONDANSETRON HCL 4MG/2ML INJ IV PRN (17:15)
[2024-09-01] MEDS ORDERED: DEXTROSE 50% WATER 50ML SYRINGE IV PRN (17:15)
[2024-09-01] MEDS: INSULIN LISPRO 100 UNITS/ML SUBCUT SCH (17:20)
[2024-09-01] MEDS ORDERED: NALOXONE HCL 0.4MG/ML VIAL IV PRN (17:30)
[2024-09-01 17:33] VITALS: BP 178/79; PULSE 72; RESP 14; TEMP 36.8072
[2024-09-01] MEDS: ENOXAPARIN 40MG/0.4ML SYR SUBCUT SCH (17:44)
[2024-09-01] MEDS: HYDRALAZINE 20MG/ML VIAL IV PRN (18:36)
[2024-09-01 20:05] VITALS: BP 146/77; PULSE 71; RESP 11; TEMP 36.16956; O2SAT 99
[2024-09-01] MEDS: BLOOD SUGAR DIAGNOSTIC STRIP TEST SCH (21:00)
[2024-09-01] MEDS ORDERED: ZOLPIDEM TARTRATE 5MG TABLET PO PRN (21:00)
[2024-09-01] MEDS: LOSARTAN 50 MG TABLET PO SCH (23:04)
[2024-09-01] MEDS: AMLODIPINE 5MG TABLET PO SCH (23:05)
[2024-09-01] MEDS: CARVEDILOL 12.5MG TABLET PO SCH (23:07)
[2024-09-01] MEDS: INSULIN GLARGINE 100 UNITS/ML SUBCUT SCH (23:08)
[2024-09-02] VITALS (7 sets, daily range): BP systolic 100–175; BP diastolic 55–82; PULSE 72–76; RESP 12–20; TEMP 36.00288–36.9474; O2SAT 98–100
[2024-09-02] MEDS: IPRATROPIUM/ALBUTEROL 0.5-3(2.5)MG/3ML NEB HHN SCH
[2024-09-02 00:05] LABS: *AMPHETAMINES SCREEN URINE NEGATIVE (NEGATIVE); *BARBITURATES SCREEN URINE NEGATIVE (NEGATIVE); *BENZODIAZEPINES SCREEN URINE NEGATIVE (NEGATIVE); *COCAINE SCREEN URINE NEGATIVE (NEGATIVE); CANNABINOID URINE SCREEN NEGATIVE (NEGATIVE); ECSTASY MDMA SCREEN URINE NEGATIVE (NEGATIVE); METHADONE URINE SCREEN NEGATIVE (NEGATIVE); OPIATES URINE SCREEN NEGATIVE (NEGATIVE); PHENCYCLIDINE URINE SCREEN NEGATIVE (NEGATIVE)
[2024-09-02 01:26] LABS: CREATINE KINASE MB FRACTION 5.5 ng/mL (0.5-3.6)
[2024-09-02] MEDS: INSULIN LISPRO 100 UNITS/ML SUBCUT SCH (06:58)
[2024-09-02 13:32] LABS: BASOPHILS % 0.1 % (0.0-2.0); EOSINOPHILS % 1.3 % (0.0-5.0); HEMATOCRIT. 25.4 % (36.0-48.0); HEMOGLOBIN. 8.4 g/dL (12.0-16.0); LYMPHOCYTES % 28.2 % (20.0-50.0); MEAN CORPUSCULAR HEMOGLOBIN 29.4 pg (28.0-32.0); MEAN CORPUSCULAR HGB CONC 33.1 g/dL (31.0-37.0); MEAN CORPUSCULAR VOLUME 88.8 fL (81.0-99.0); MEAN PLATELET VOLUME 8.5 fl (7.4-10.4); NEUTROPHILS % 63.4 % (40.0-76.0); PLATELET 120 x1000/uL (130-400); RED BLOOD CELL COUNT 2.86 mill/uL (4.2-5.4); RED CELL DISTRIBUTION WIDTH 13.4 % (11.6-14.6); WHITE BLOOD COUNT 4.7 x1000/uL (4.5-11.0)
[2024-09-02 13:41] LABS: CHLORIDE 112 mEq/L (98-107); POTASSIUM 3.6 mEq/L (3.5-5.1); SODIUM 144 mEq/L (136-145)
[2024-09-02 13:42] LABS: CALCIUM 8.5 mg/dL (8.7-10.4); CARBON DIOXIDE 26 mEq/L (21-32)
[2024-09-02 13:47] LABS: CREATINE KINASE MB FRACTION 4.1 ng/mL (0.5-3.6); CREATININE 0.8 mg/dL (0.6-1.0); GLUCOSE 105 mg/dL (70-105)
[2024-09-02 13:48] LABS: LDL CHOLESTEROL 84 mg/dL (5-100); TRIGLYCERIDE 171 mg/dL (0-150); UREA NITROGEN BLOOD 21 mg/dL (9-23)
[2024-09-02 13:50] LABS: CHOLESTEROL 147 mg/dL (<200); HDL CHOLESTEROL 32 mg/dL (>65)
[2024-09-03] VITALS (8 sets, daily range): BP systolic 117–161; BP diastolic 68–100; PULSE 66–84; RESP 12–18; TEMP 36.61404–37.2252; O2SAT 97–99
[2024-09-03] MEDS: IPRATROPIUM/ALBUTEROL 0.5-3(2.5)MG/3ML NEB HHN SCH (08:46)
[2024-09-03] MEDS: HYDROCODONE/ACETAMINOPHEN 5/325MG TABLET PO PRN (10:08)
[2024-09-03] MEDS: CLONIDINE 0.2MG TABLET PO SCH (13:33)
[2024-09-03] MEDS ORDERED: IPRATROPIUM/ALBUTEROL 0.5-3(2.5)MG/3ML NEB HHN PRN (15:30)
[2024-09-04] VITALS (9 sets, daily range): BP systolic 131–159; BP diastolic 71–81; PULSE 72–81; RESP 13–19; TEMP 36.28068–37.2252; O2SAT 97–99
[2024-09-05] VITALS (8 sets, daily range): BP systolic 124–156; BP diastolic 72–90; PULSE 75–87; RESP 14–24; TEMP 36.55848–37.05852; O2SAT 94–99
[2024-09-05] MEDS: ACETAMINOPHEN 325MG TABLET PO PRN (22:54)
[2024-09-06] VITALS (8 sets, daily range): BP systolic 127–168; BP diastolic 74–83; PULSE 71–78; RESP 12–20; TEMP 36.55848–36.83628; O2SAT 97–100
[2024-09-07] VITALS: BP 160/83; PULSE 75; RESP 15; TEMP 36.6696; O2SAT 100
[2024-09-07 04:00] VITALS: BP 165/85; PULSE 73; RESP 12; TEMP 36.6696; O2SAT 99
[2024-09-07 08:00] VITALS: BP 151/79; PULSE 72; RESP 14; TEMP 37.05852; O2SAT 100
[2024-09-07] MEDS ORDERED: NALOXONE HCL 0.4MG/ML VIAL IV PRN (09:00)
[2024-09-07 09:27] VITALS: RESP 14
[2024-09-07] MEDS: HYDROCODONE/ACETAMINOPHEN 5/325MG TABLET PO PRN (09:27)
[2024-09-07 10:47] VITALS: BP 130/75; PULSE 76; TEMP 98.7; O2SAT 100
== END 2024-09-07 12:00 | disposition home or self-care (01) | DRG 597 ==
LOC: ER 08:21 → 3WST 12:30 → EDBEDREQTM 12:32 → EDBEDREQ 12:32
PROVIDERS: ADMIT Internal Medicine; ATTEND Internal Medicine
DX: C50.912 Malignant neoplasm of unspecified site of left female breast (principal); J96.01 Acute respiratory failure with hypoxia; J44.1 Chronic obstructive pulmonary disease with (acute) exacerbation; I13.0 Hypertensive heart and chronic kidney disease with heart failure and stage 1 through stage 4 chronic kidney disease, or unspecified chronic kidney disease; I50.9 Heart failure, unspecified; E11.22 Type 2 diabetes mellitus with diabetic chronic kidney disease; I25.10 Atherosclerotic heart disease of native coronary artery without angina pectoris; E78.5 Hyperlipidemia, unspecified; N63.20 Unspecified lump in the left breast, unspecified quadrant; K76.0 Fatty (change of) liver, not elsewhere classified; K57.30 Diverticulosis of large intestine without perforation or abscess without bleeding; N18.9 Chronic kidney disease, unspecified; Z91.199 Patient's noncompliance with other medical treatment and regimen due to unspecified reason; Z99.81 Dependence on supplemental oxygen; Z90.49 Acquired absence of other specified parts of digestive tract
CPT/HCPCS: 36415; 71045; 71250; 80048; 80061; 80305; 82550; 82553; 82962; 83036; 83880; 84484; 85025; 93005; 93306; 93970; 94640; 99291; A6261; J0360; J1650; J1815

== ENCOUNTER 2024-09-28 03:41 | Inpatient (IN) | payer MEDICARE, MEDICAID ==
[~2024-09-28] VITALS: Ht 157.5 cm; Wt 62.1 kg
[2024-09-28 05:10] LABS: BASOPHILS % 1.4 % (0.0-2.0); EOSINOPHILS % 1.5 % (0.0-5.0); HEMATOCRIT. 30.1 % (36.0-48.0); HEMOGLOBIN. 9.8 g/dL (12.0-16.0); LYMPHOCYTES % 38.7 % (20.0-50.0); MEAN CORPUSCULAR HGB CONC 32.6 g/dL (31.0-37.0); MEAN CORPUSCULAR VOLUME 88.8 fL (81.0-99.0); MEAN PLATELET VOLUME 8.8 fl (7.4-10.4); MONOCYTES % 8.4 % (2.0-8.0); PLATELET 133 x1000/uL (130-400); RED BLOOD CELL COUNT 3.39 mill/uL (4.2-5.4); RED CELL DISTRIBUTION WIDTH 14.1 % (11.6-14.6); WHITE BLOOD COUNT 5.5 x1000/uL (4.5-11.0)
[2024-09-28] MEDS: ONDANSETRON HCL 4MG/2ML INJ IV STA (05:13)
[2024-09-28] MEDS: MORPHINE SULFATE 4 MG/ML INJ (FOR IV/IM USE) IV STA (05:13)
[2024-09-28 05:21] LABS: CHLORIDE 111 mEq/L (98-107); POTASSIUM 3.6 mEq/L (3.5-5.1); SODIUM 143 mEq/L (136-145)
[2024-09-28 05:22] LABS: CALCIUM 8.6 mg/dL (8.7-10.4); CARBON DIOXIDE 23 mEq/L (21-32)
[2024-09-28 05:27] LABS: GLUCOSE 163 mg/dL (70-105); UREA NITROGEN BLOOD 17 mg/dL (9-23)
[2024-09-28 05:28] LABS: LACTIC ACID 2.8 mmol/L (0.4-2.0)
[2024-09-28 05:58] LABS: TROPONIN I HIGH SENSITIVITY 60 ng/L (3.0-34)
[2024-09-28] MEDS ORDERED: DOCUSATE SODIUM 100MG CAPSULE PO PRN (08:15)
[2024-09-28] MEDS ORDERED: MAGNESIUM/ALUMINUM HYDROXIDE/SIMETHICONE 30ML UDC PO PRN (08:15)
[2024-09-28] MEDS ORDERED: ACETAMINOPHEN 325MG TABLET PO PRN ×2 (08:15)
[2024-09-28] MEDS ORDERED: CLONIDINE 0.2MG TABLET PO ONE (08:15)
[2024-09-28] MEDS ORDERED: GUAIFENESIN 200MG/10ML SUGAR FREE UDC PO PRN (08:15)
[2024-09-28] MEDS ORDERED: ONDANSETRON HCL 4MG/2ML INJ IV PRN (08:15)
[2024-09-28] MEDS ORDERED: IPRATROPIUM/ALBUTEROL 0.5-3(2.5)MG/3ML NEB HHN PRN (08:15)
[2024-09-28] MEDS ORDERED: CLONIDINE 0.1MG TABLET PO PRN (08:15)
[2024-09-28] MEDS: CLONIDINE 0.1MG TABLET PO NR (08:16)
[2024-09-28] MEDS ORDERED: NALOXONE HCL 0.4MG/ML VIAL IV PRN (08:30)
[2024-09-28 08:45] LABS: TROPONIN I HIGH SENSITIVITY 60 ng/L (3.0-34)
[2024-09-28] MEDS: THIAMINE HCL 100MG TABLET PO SCH (09:24)
[2024-09-28] MEDS: FOLIC ACID 1MG TABLET PO SCH (09:24)
[2024-09-28] MEDS: MULTIVITAMINS,THER W-MINERALS TABLET PO SCH (09:24)
[2024-09-28 10:25] VITALS: PULSE 72; RESP 20; O2SAT 99
[2024-09-28] MEDS: IPRATROPIUM/ALBUTEROL 0.5-3(2.5)MG/3ML NEB HHN SCH (10:25)
[2024-09-28] MEDS ORDERED: HYDR25TA78 PO (10:28)
[2024-09-28] MEDS ORDERED: HYDR25TA PO (10:28)
[2024-09-28] MEDS ORDERED: ASPI-1160 PO (10:28)
[2024-09-28] MEDS ORDERED: AMLO10TA80 PO (10:28)
[2024-09-28] MEDS ORDERED: INSU100I28 SUBCUT (10:28)
[2024-09-28] MEDS ORDERED: ATOR40TA70 PO (10:28)
[2024-09-28] MEDS: HYDRALAZINE HCL 25MG TABLET PO SCH (10:37)
[2024-09-28] MEDS: ASPIRIN 81MG TABLET PO SCH (10:38)
[2024-09-28] MEDS ORDERED: HYDRALAZINE 20MG/ML VIAL IV PRN (10:45)
[2024-09-28 11:39] VITALS: BP 126/78; PULSE 73; RESP 20; TEMP 36.7516
[2024-09-28] MEDS: PANTOPRAZOLE 40MG DR TABLET PO SCH (12:18)
[2024-09-28] MEDS: HYDROCHLOROTHIAZIDE 25MG TABLET PO SCH (12:18)
[2024-09-28] MEDS: ENOXAPARIN 40MG/0.4ML SYR SUBCUT SCH (12:18)
[2024-09-28] MEDS: HYDROCODONE/ACETAMINOPHEN 5/325MG TABLET PO PRN (12:19)
[2024-09-28 16:00] VITALS: BP 155/78; PULSE 73; RESP 20; TEMP 36.55848; O2SAT 98
[2024-09-28 16:44] LABS: CREATINE KINASE 70 IU/L (34-145)
[2024-09-28 17:21] LABS: TROPONIN I HIGH SENSITIVITY 55 ng/L (3.0-34)
[2024-09-28] MEDS ORDERED: DEXTROSE 50% WATER 50ML SYRINGE IV PRN (17:30)
[2024-09-28] MEDS: INSULIN LISPRO 100 UNITS/ML SUBCUT SCH (17:52)
[2024-09-28 20:00] VITALS: BP 131/67; PULSE 71; RESP 18; TEMP 36.50292; O2SAT 99
[2024-09-28] MEDS: BLOOD SUGAR DIAGNOSTIC STRIP TEST SCH (20:49)
[2024-09-28] MEDS: CARVEDILOL 12.5MG TABLET PO SCH (20:49)
[2024-09-28 22:39] LABS: CREATINE KINASE 62 IU/L (34-145)
[2024-09-28 22:48] LABS: TROPONIN I HIGH SENSITIVITY 51 ng/L (3.0-34)
[2024-09-29] VITALS (9 sets, daily range): BP systolic 123–158; BP diastolic 58–76; PULSE 70–86; RESP 18–20; TEMP 36.3918–37.16964; O2SAT 97–100
[2024-09-29 02:34] LABS: CREATINE KINASE 62 IU/L (34-145)
[2024-09-29 03:50] LABS: TROPONIN I HIGH SENSITIVITY 47 ng/L (3.0-34)
[2024-09-29 08:41] LABS: BASOPHILS % 0.2 % (0.0-2.0); EOSINOPHILS % 0.7 % (0.0-5.0); HEMATOCRIT. 26.3 % (36.0-48.0); HEMOGLOBIN. 8.5 g/dL (12.0-16.0); LYMPHOCYTES % 31.6 % (20.0-50.0); MEAN CORPUSCULAR HEMOGLOBIN 28.8 pg (28.0-32.0); MEAN CORPUSCULAR HGB CONC 32.3 g/dL (31.0-37.0); MEAN CORPUSCULAR VOLUME 89.1 fL (81.0-99.0); MEAN PLATELET VOLUME 9.3 fl (7.4-10.4); MONOCYTES % 8.9 % (2.0-8.0); NEUTROPHILS % 58.6 % (40.0-76.0); PLATELET 117 x1000/uL (130-400); RED BLOOD CELL COUNT 2.95 mill/uL (4.2-5.4); WHITE BLOOD COUNT 5.2 x1000/uL (4.5-11.0)
[2024-09-29 08:53] LABS: CHLORIDE 112 mEq/L (98-107); POTASSIUM 3.9 mEq/L (3.5-5.1); SODIUM 142 mEq/L (136-145)
[2024-09-29 08:54] LABS: CARBON DIOXIDE 20 mEq/L (21-32)
[2024-09-29 08:55] LABS: CALCIUM 8.6 mg/dL (8.7-10.4)
[2024-09-29 08:59] LABS: GLUCOSE 136 mg/dL (70-105)
[2024-09-29 09:00] LABS: LDL CHOLESTEROL 72 mg/dL (5-100); TRIGLYCERIDE 100 mg/dL (0-150); UREA NITROGEN BLOOD 26 mg/dL (9-23)
[2024-09-29 09:01] LABS: CHOLESTEROL 125 mg/dL (<200); HDL CHOLESTEROL 34 mg/dL (>65)
[2024-09-29 09:17] LABS: CREATININE 1.5 mg/dL (0.6-1.0)
[2024-09-29] MEDS: ATORVASTATIN CALCIUM 40MG TABLET PO SCH (09:58)
[2024-09-29] MEDS: AMLODIPINE 10MG TABLET PO SCH (10:01)
[2024-09-29] MEDS ORDERED: IOHEXOL-350 100 ML BOTTLE ONE (10:49)
[2024-09-29] MEDS: KETOROLAC 15MG/ML VIAL IV PRN (18:54)
[2024-09-30] VITALS (8 sets, daily range): BP systolic 126–176; BP diastolic 63–75; PULSE 66–82; RESP 16–20; TEMP 35.94732–37.11408; O2SAT 96–100
[2024-10-01] MEDS ORDERED: FAMOTIDINE 20MG TABLET PO SCH (09:00)
== END 2024-09-30 15:26 | disposition home or self-care (01) | DRG 281 ==
LOC: ER 03:41 → 8WST 04:55 → EDBEDREQ 06:15
PROVIDERS: ADMIT Internal Medicine; ATTEND Internal Medicine
DX: I16.1 Hypertensive emergency (principal); E87.20 Acidosis, unspecified; I21.A1 Myocardial infarction type 2; I42.9 Cardiomyopathy, unspecified; N17.9 Acute kidney failure, unspecified; B19.20 Unspecified viral hepatitis C without hepatic coma; D25.9 Leiomyoma of uterus, unspecified; E11.9 Type 2 diabetes mellitus without complications; N63.20 Unspecified lump in the left breast, unspecified quadrant; I11.0 Hypertensive heart disease with heart failure; D63.8 Anemia in other chronic diseases classified elsewhere; J44.9 Chronic obstructive pulmonary disease, unspecified; I25.10 Atherosclerotic heart disease of native coronary artery without angina pectoris; F20.9 Schizophrenia, unspecified; I50.9 Heart failure, unspecified; E78.5 Hyperlipidemia, unspecified; J43.9 Emphysema, unspecified; K57.30 Diverticulosis of large intestine without perforation or abscess without bleeding; F17.210 Nicotine dependence, cigarettes, uncomplicated; Z79.4 Long term (current) use of insulin; Z79.84 Long term (current) use of oral hypoglycemic drugs; Z79.82 Long term (current) use of aspirin; Z91.199 Patient's noncompliance with other medical treatment and regimen due to unspecified reason; Z99.3 Dependence on wheelchair; Z85.3 Personal history of malignant neoplasm of breast; Z79.899 Other long term (current) drug therapy; Z91.040 Latex allergy status
CPT/HCPCS: 36415; 71045; 71275; 80048; 80061; 82550; 82962; 83605; 83880; 84484; 85025; 85379; 86705; 87340; 93005; 93970; 94640; 99285; J1650; J1815; J1885; J2270; J2405; Q9967

== ENCOUNTER 2024-10-13 07:08 | Inpatient (IN) | payer MEDICARE, MEDICAID ==
[~2024-10-13] VITALS: Ht 157.5 cm; Wt 62.8 kg
[~2024-10-13 07:08] MED LIST changes: +AMLO10TA80 PO; -AMLO5TAB88 PO; +ASPI-1160 PO; -ATOR20TA PO; +ATOR40TA70 PO; -AZIT500T MT; +HYDR25TA PO; +HYDR25TA78 PO; +INSU100I28 SUBCUT; -P20 MT
[2024-10-13 08:02] LABS: BASOPHILS % 0.8 % (0.0-2.0); EOSINOPHILS % 0.8 % (0.0-5.0); HEMATOCRIT. 26.6 % (36.0-48.0); HEMOGLOBIN. 8.9 g/dL (12.0-16.0); LYMPHOCYTES % 26.6 % (20.0-50.0); MEAN CORPUSCULAR HEMOGLOBIN 29.8 pg (28.0-32.0); MEAN CORPUSCULAR HGB CONC 33.5 g/dL (31.0-37.0); MEAN CORPUSCULAR VOLUME 88.8 fL (81.0-99.0); MEAN PLATELET VOLUME 9.3 fl (7.4-10.4); MONOCYTES % 7.6 % (2.0-8.0); NEUTROPHILS % 64.2 % (40.0-76.0); PLATELET 108 x1000/uL (130-400); RED BLOOD CELL COUNT 2.99 mill/uL (4.2-5.4); RED CELL DISTRIBUTION WIDTH 13.8 % (11.6-14.6); WHITE BLOOD COUNT 6.6 x1000/uL (4.5-11.0)
[2024-10-13 08:15] LABS: CHLORIDE 107 mEq/L (98-107); POTASSIUM 3.7 mEq/L (3.5-5.1); SODIUM 134 mEq/L (136-145)
[2024-10-13 08:16] LABS: CARBON DIOXIDE 21 mEq/L (21-32)
[2024-10-13 08:17] LABS: CALCIUM 8.9 mg/dL (8.7-10.4)
[2024-10-13 08:21] LABS: CREATININE 1.2 mg/dL (0.6-1.0); UREA NITROGEN BLOOD 25 mg/dL (9-23)
[2024-10-13 08:30] LABS: BG BASE EXCESS 0.3 mmol/L (-2.0-3.0); BG CARBOXYHEMOGLOBIN 7.2 % (0.5-1.5); BG DEOXYHEMOGLOBIN 2.3 % (0.0-5.0); BG FRACTION INSPIRED OXYGEN 21; BG METHEMOGLOBIN 0.3 % (0.5-1.5); BG OXYGEN SATURATION 97.5 % (94.0-98.0); BG OXYHEMOGLOBIN 90.2 % (94.0-98.0); BG PCO2 40.7 mmHg (32.0-45.0); BG PH 7.407 (7.350-7.450); BG PO2 101.5 mmHg (83.0-108.0); BG SAMPLE SITE LEFT BRACHIAL; BG VENT MODE ROOM AIR
[2024-10-13 09:04] LABS: GLUCOSE 411 mg/dL (70-105)
[2024-10-13 09:09] LABS: TROPONIN I HIGH SENSITIVITY 56 ng/L (3.0-34)
[2024-10-13] MEDS: ENOXAPARIN 60MG/0.6ML SYR SUBCUT ONE (10:22)
[2024-10-13] MEDS ORDERED: ACETAMINOPHEN 325MG TABLET PO PRN (11:15)
[2024-10-13] MEDS ORDERED: IPRATROPIUM/ALBUTEROL 0.5-3(2.5)MG/3ML NEB HHN PRN (11:15)
[2024-10-13] MEDS ORDERED: GUAIFENESIN 200MG/10ML SUGAR FREE UDC PO PRN (11:15)
[2024-10-13] MEDS ORDERED: DOCUSATE SODIUM 100MG CAPSULE PO PRN (11:15)
[2024-10-13] MEDS ORDERED: ONDANSETRON HCL 4MG/2ML INJ IV PRN (11:15)
[2024-10-13] MEDS ORDERED: DEXTROSE 50% WATER 50ML SYRINGE IV PRN (11:30)
[2024-10-13 12:00] VITALS: BP 186/89; PULSE 72; RESP 18; TEMP 35.2806; O2SAT 100
[2024-10-13 12:02] VITALS: BP 186/89; PULSE 72; RESP 20; TEMP 35.306
[2024-10-13 12:07] VITALS: BP 186/89; PULSE 71; RESP 20; TEMP 35.2806; O2SAT 100
[2024-10-13] MEDS: POTASSIUM CHLORIDE 20MEQ TABLET SR PO NR (13:03)
[2024-10-13] MEDS: METHYLPREDNISOLONE SOD SUCC 40MG/ML (ACT-O-VIAL) IV NR (13:03)
[2024-10-13] MEDS: BLOOD SUGAR DIAGNOSTIC STRIP TEST SCH (13:03)
[2024-10-13] MEDS: CLONIDINE 0.1MG TABLET PO PRN (13:07)
[2024-10-13] MEDS: INSULIN LISPRO 100 UNITS/ML SUBCUT SCH (13:15)
[2024-10-13 14:57] LABS: FERRITIN 86 ng/mL (10-291); VITAMIN B12 SERUM 1079 pg/mL (211-911)
[2024-10-13] MEDS: SODIUM CHLORIDE 0.9% 1,000 ML IV ONE (15:23)
[2024-10-13] MEDS: ENOXAPARIN 40MG/0.4ML SYR SUBCUT SCH (15:23)
[2024-10-13 15:28] LABS: FOLIC ACID (FOLATE) SERUM > 20.00 ng/mL (>5.38)
[2024-10-13 16:00] VITALS: BP 137/74; PULSE 70; RESP 18; TEMP 35.61396; O2SAT 100
[2024-10-13] MEDS: HYDRALAZINE HCL 25MG TABLET PO SCH (17:34)
[2024-10-13 20:00] VITALS: BP 95/53; PULSE 84; RESP 16; TEMP 36.00288; O2SAT 98
[2024-10-13] MEDS: LOSARTAN 50 MG TABLET PO SCH (21:00)
[2024-10-13 22:13] LABS: IRON 39 ug/dL (50-170)
[2024-10-13 22:14] LABS: CREATINE KINASE MB FRACTION 4.4 ng/mL (0.5-3.6)
[2024-10-13 22:16] LABS: TOTAL IRON BINDING CAPACITY 322 ug/dl (250-425)
[2024-10-13 22:22] LABS: TROPONIN I HIGH SENSITIVITY 47 ng/L (3.0-34)
[2024-10-14] VITALS (7 sets, daily range): BP systolic 152–181; BP diastolic 71–80; PULSE 67–92; RESP 16–20; TEMP 36.114–36.78072; O2SAT 98–100
[2024-10-14] MEDS: PANTOPRAZOLE 40MG DR TABLET PO SCH (05:55)
[2024-10-14] MEDS: ASPIRIN 81MG EC TABLET PO SCH (09:38)
[2024-10-14] MEDS: AMLODIPINE 10MG TABLET PO SCH (09:38)
[2024-10-14] MEDS: ATORVASTATIN CALCIUM 40MG TABLET PO SCH (09:38)
[2024-10-14 17:26] LABS: *AMPHETAMINES SCREEN URINE NEGATIVE (NEGATIVE); *BARBITURATES SCREEN URINE NEGATIVE (NEGATIVE); *BENZODIAZEPINES SCREEN URINE NEGATIVE (NEGATIVE); *COCAINE SCREEN URINE NEGATIVE (NEGATIVE); CANNABINOID URINE SCREEN NEGATIVE (NEGATIVE); ECSTASY MDMA SCREEN URINE NEGATIVE (NEGATIVE); METHADONE URINE SCREEN NEGATIVE (NEGATIVE); OPIATES URINE SCREEN NEGATIVE (NEGATIVE); PHENCYCLIDINE URINE SCREEN NEGATIVE (NEGATIVE)
[2024-10-14 17:29] LABS: CLARITY URINE CLOUDY (CLEAR); COLOR URINE YELLOW (YELLOW); GLUCOSE URINE NEGATIVE (NEGATIVE); KETONES URINE NEGATIVE (NEGATIVE); LEUKOCYTE ESTERASE URINE 2+ (NEGATIVE); NITRITE URINE POSITIVE (NEGATIVE); OCCULT BLOOD URINE 1+ (NEGATIVE); PH URINE 5.5 (4.5-8.0); PROTEIN URINE 3+ (NEGATIVE); SPECIFIC GRAVITY URINE 1.016 (1.005-1.030); UROBILINOGEN URINE 0.2 E.U./dL (0.2-1.0)
[2024-10-14 18:03] LABS: SQUAMOUS EPITHELIAL CELL URINE 1+ /lpf (RARE/1+)
[2024-10-14 18:04] LABS: BACTERIA URINE 4+
[2024-10-14] MEDS: INSULIN LISPRO 100 UNITS/ML SUBCUT SCH (18:15)
[2024-10-14] MEDS: IPRATROPIUM/ALBUTEROL 0.5-3(2.5)MG/3ML NEB HHN SCH (21:09)
[2024-10-14] MEDS: INSULIN GLARGINE 100 UNITS/ML SUBCUT SCH (21:56)
[2024-10-15] VITALS (10 sets, daily range): BP systolic 117–180; BP diastolic 61–83; PULSE 72–89; RESP 18–20; TEMP 36.28068–37.11408; O2SAT 96–100
[2024-10-15 10:36] LABS: HEMATOCRIT 25.7 % (36.0-48.0); HEMOGLOBIN 8.3 g/dL (12.0-16.0); MEAN CORPUSCULAR HGB CONC 32.5 g/dL (31.0-37.0); MEAN CORPUSCULAR VOLUME 89.1 fL (81.0-99.0); PLATELET 105 x1000/uL (130-400); RED BLOOD CELL COUNT 2.88 mill/uL (4.2-5.4); RED CELL DISTRIBUTION WIDTH 14.3 % (11.6-14.6); WHITE BLOOD COUNT 4.8 x1000/uL (4.5-11.0)
[2024-10-15 10:39] LABS: CHLORIDE 110 mEq/L (98-107); POTASSIUM 3.4 mEq/L (3.5-5.1); SODIUM 140 mEq/L (136-145)
[2024-10-15 10:40] LABS: CARBON DIOXIDE 23 mEq/L (21-32)
[2024-10-15 10:41] LABS: CALCIUM 8.7 mg/dL (8.7-10.4)
[2024-10-15 10:45] LABS: GLUCOSE 200 mg/dL (70-105)
[2024-10-15 10:46] LABS: UREA NITROGEN BLOOD 26 mg/dL (9-23)
[2024-10-15] MEDS: POTASSIUM CHLORIDE 20MEQ TABLET SR PO NR (13:50)
[2024-10-15] MEDS: FERROUS SULFATE 325MG TABLET PO SCH (17:26)
[2024-10-15] MEDS: CEFTRIAXONE 1GM/50ML 50 ML IV SCH (17:26)
[2024-10-15] MEDS: ACETAMINOPHEN 325MG TABLET PO PRN (22:37)
[2024-10-16] VITALS (8 sets, daily range): BP systolic 144–185; BP diastolic 63–86; PULSE 70–96; RESP 18–20; TEMP 35.8362–37.55856; O2SAT 94–100
[2024-10-16 06:41] LABS: CARBON DIOXIDE 25 mEq/L (21-32); CHLORIDE 109 mEq/L (98-107); POTASSIUM 4.1 mEq/L (3.5-5.1); SODIUM 140 mEq/L (136-145)
[2024-10-16 06:42] LABS: CALCIUM 8.8 mg/dL (8.7-10.4)
[2024-10-16 06:46] LABS: CREATININE 0.9 mg/dL (0.6-1.0); GLUCOSE 214 mg/dL (70-105)
[2024-10-16 06:47] LABS: UREA NITROGEN BLOOD 27 mg/dL (9-23)
[2024-10-16 10:25] LABS: BASOPHILS % 0.1 % (0.0-2.0); EOSINOPHILS % 2.2 % (0.0-5.0); HEMATOCRIT. 25.8 % (36.0-48.0); HEMOGLOBIN. 8.5 g/dL (12.0-16.0); LYMPHOCYTES % 32.6 % (20.0-50.0); MEAN CORPUSCULAR HEMOGLOBIN 29.2 pg (28.0-32.0); MEAN CORPUSCULAR HGB CONC 32.8 g/dL (31.0-37.0); MEAN PLATELET VOLUME 9.6 fl (7.4-10.4); MONOCYTES % 8.4 % (2.0-8.0); NEUTROPHILS % 56.7 % (40.0-76.0); PLATELET 103 x1000/uL (130-400); RED CELL DISTRIBUTION WIDTH 14.2 % (11.6-14.6); WHITE BLOOD COUNT 4.4 x1000/uL (4.5-11.0)
[2024-10-16] MEDS ORDERED: FERR-63 PO (11:55)
[2024-10-16] MEDS ORDERED: ATORVASTATIN CALCIUM 40MG TABLET PO SCH (21:00)
== END 2024-10-16 19:02 | disposition home or self-care (01) | DRG 190 ==
LOC: ER 07:21 → EDBEDREQ 08:05 → 7EST 12:29
PROVIDERS: ADMIT Hospitalist; ATTEND Hospitalist
DX: J44.1 Chronic obstructive pulmonary disease with (acute) exacerbation (principal); U07.1 COVID-19; E87.1 Hypo-osmolality and hyponatremia; I13.0 Hypertensive heart and chronic kidney disease with heart failure and stage 1 through stage 4 chronic kidney disease, or unspecified chronic kidney disease; N17.9 Acute kidney failure, unspecified; I50.32 Chronic diastolic (congestive) heart failure; N39.0 Urinary tract infection, site not specified; N18.9 Chronic kidney disease, unspecified; D50.9 Iron deficiency anemia, unspecified; E11.22 Type 2 diabetes mellitus with diabetic chronic kidney disease; E78.5 Hyperlipidemia, unspecified; D63.8 Anemia in other chronic diseases classified elsewhere; H54.8 Legal blindness, as defined in USA; E87.6 Hypokalemia; F17.200 Nicotine dependence, unspecified, uncomplicated; Z78.9 Other specified health status; Z79.82 Long term (current) use of aspirin; Z79.899 Other long term (current) drug therapy; Z85.3 Personal history of malignant neoplasm of breast; Z99.81 Dependence on supplemental oxygen; Z88.8 Allergy status to other drugs, medicaments and biological substances
CPT/HCPCS: 36415; 36600; 71045; 80048; 80305; 81003; 82375; 82553; 82607; 82728; 82746; 82805; 82962; 83036; 83540; 83550; 83880; 84484; 85025; 85027; 87426; 93005; 93970; 94640; 99285; J0696; J1650; J1815; J2920

== ENCOUNTER 2024-10-18 07:07 | Emergency (ER) | payer MEDICARE, MEDICAID ==
[~2024-10-18] VITALS: Ht 165.1 cm; Wt 60.0 kg
[~2024-10-18 07:07] MED LIST changes: +FERR-63 PO
[2024-10-18 07:16] VITALS: O2SAT 100
[2024-10-18] MEDS ORDERED: NIRM1TAB8 PO (08:35)
[2024-10-18 11:37] VITALS: BP 168/71; PULSE 72; RESP 16; TEMP 36.66960; O2SAT 100
== END 2024-10-18 11:58 | disposition home or self-care (01) ==
LOC: ER 07:07
DX: U07.1 COVID-19 (principal); I11.0 Hypertensive heart disease with heart failure; I50.9 Heart failure, unspecified; E11.9 Type 2 diabetes mellitus without complications; J44.9 Chronic obstructive pulmonary disease, unspecified; I25.2 Old myocardial infarction; Z91.040 Latex allergy status; Z79.899 Other long term (current) drug therapy
CPT/HCPCS: 71045; 99283

== ENCOUNTER 2024-10-24 04:03 | Inpatient (IN) | payer MEDICARE, MEDICAID ==
[~2024-10-24] VITALS: Ht 157.5 cm; Wt 56.4 kg
[~2024-10-24 04:03] MED LIST changes: +NIRM1TAB8 PO
[2024-10-24] MEDS ORDERED: ONDANSETRON HCL 4MG/2ML INJ IV STA (06:58)
[2024-10-24] MEDS ORDERED: MORPHINE SULFATE 4 MG/ML INJ (FOR IV/IM USE) IV STA (06:58)
[2024-10-24] MEDS: SODIUM CHLORIDE 0.9% 1,000 ML IV ONE (07:34)
[2024-10-24 07:55] LABS: BASOPHILS % 0.3 % (0.0-2.0); HEMATOCRIT. 26.8 % (36.0-48.0); HEMOGLOBIN. 8.7 g/dL (12.0-16.0); LYMPHOCYTES % 40.8 % (20.0-50.0); MEAN CORPUSCULAR HEMOGLOBIN 29.2 pg (28.0-32.0); MEAN CORPUSCULAR HGB CONC 32.6 g/dL (31.0-37.0); MEAN CORPUSCULAR VOLUME 89.6 fL (81.0-99.0); MEAN PLATELET VOLUME 7.6 fl (7.4-10.4); MONOCYTES % 9.4 % (2.0-8.0); NEUTROPHILS % 47.5 % (40.0-76.0); PLATELET 139 x1000/uL (130-400); RED BLOOD CELL COUNT 2.99 mill/uL (4.2-5.4); RED CELL DISTRIBUTION WIDTH 14.4 % (11.6-14.6)
[2024-10-24 08:06] LABS: POTASSIUM 4.2 mEq/L (3.5-5.1)
[2024-10-24 08:07] LABS: CALCIUM 8.7 mg/dL (8.7-10.4)
[2024-10-24 08:19] LABS: CREATININE 1.3 mg/dL (0.6-1.0)
[2024-10-24] MEDS: ONDANSETRON HCL 4MG/2ML INJ IV NR (09:26)
[2024-10-24] MEDS: MORPHINE SULFATE 4 MG/ML INJ (FOR IV/IM USE) IV NR (09:26)
[2024-10-24] MEDS: HYDRALAZINE 20MG/ML VIAL IV SCH (13:35)
[2024-10-24 14:30] VITALS: BP 144/69; PULSE 84; RESP 12; TEMP 36.61404; O2SAT 99
[2024-10-24 14:43] VITALS: BP 144/69; PULSE 85; RESP 11; TEMP 36.6404
[2024-10-24 16:00] VITALS: BP 162/81; PULSE 86; RESP 12; TEMP 36.6696; O2SAT 99
[2024-10-24] MEDS ORDERED: IPRATROPIUM/ALBUTEROL 0.5-3(2.5)MG/3ML NEB HHN PRN (16:30)
[2024-10-24] MEDS ORDERED: NITROGLYCERIN 0.4MG TABLET SL SL SCH (16:30)
[2024-10-24] MEDS ORDERED: ONDANSETRON HCL 4MG/2ML INJ IV PRN (16:30)
[2024-10-24] MEDS: HYDRALAZINE HCL 25MG TABLET PO SCH (17:14)
[2024-10-24] MEDS: LOSARTAN 50 MG TABLET PO SCH (17:14)
[2024-10-24] MEDS: FERROUS SULFATE 325MG TABLET PO SCH (17:15)
[2024-10-24] MEDS: INSULIN GLARGINE 100 UNITS/ML SUBCUT SCH (17:16)
[2024-10-24 20:00] VITALS: BP 166/82; PULSE 95; RESP 15; TEMP 36.44736; O2SAT 97
[2024-10-24] MEDS ORDERED: DEXTROSE 50% WATER 50ML SYRINGE IV PRN (20:00)
[2024-10-24] MEDS: INSULIN LISPRO 100 UNITS/ML SUBCUT SCH (20:20)
[2024-10-24] MEDS: BLOOD SUGAR DIAGNOSTIC STRIP TEST SCH (20:20)
[2024-10-24] MEDS: FUROSEMIDE 40MG TABLET PO SCH (20:25)
[2024-10-24] MEDS: CARVEDILOL 12.5MG TABLET PO SCH (20:25)
[2024-10-24] MEDS: ATORVASTATIN CALCIUM 40MG TABLET PO SCH (20:25)
[2024-10-24] MEDS ORDERED: LOSARTAN 50 MG TABLET PO SCH (21:00)
[2024-10-25 00:17] VITALS: BP 160/74; PULSE 82; RESP 14; TEMP 36.28068; O2SAT 99
[2024-10-25 02:11] LABS: TROPONIN I HIGH SENSITIVITY 36 ng/L (3.0-34)
[2024-10-25 05:35] VITALS: BP 174/83; PULSE 78; RESP 16; TEMP 37.00296; O2SAT 96
[2024-10-25] MEDS ORDERED: NITROGLYCERIN 0.4MG TABLET SL SL PRN (06:30)
[2024-10-25] MEDS: FUROSEMIDE 40MG TABLET PO SCH (06:39)
[2024-10-25] MEDS: CLONIDINE 0.1MG TABLET PO PRN (06:39)
[2024-10-25 08:00] VITALS: BP 156/68; PULSE 77; RESP 14; TEMP 36.78072; O2SAT 98
[2024-10-25] MEDS: AMLODIPINE 10MG TABLET PO SCH (10:32)
[2024-10-25] MEDS: DOCUSATE SODIUM 100MG CAPSULE PO PRN (10:33)
[2024-10-25] MEDS: HYDROCHLOROTHIAZIDE 25MG TABLET PO SCH (10:34)
[2024-10-25] MEDS: ASPIRIN 81MG TABLET PO SCH (10:34)
[2024-10-25 10:55] LABS: HEMOGLOBIN 8.4 g/dL (12.0-16.0); MEAN CORPUSCULAR HEMOGLOBIN 28.7 pg (28.0-32.0); MEAN CORPUSCULAR HGB CONC 32.4 g/dL (31.0-37.0); MEAN CORPUSCULAR VOLUME 88.6 fL (81.0-99.0); PLATELET 139 x1000/uL (130-400); RED BLOOD CELL COUNT 2.93 mill/uL (4.2-5.4); RED CELL DISTRIBUTION WIDTH 14.4 % (11.6-14.6); WHITE BLOOD COUNT 3.8 x1000/uL (4.5-11.0)
[2024-10-25 11:07] LABS: CALCIUM 8.7 mg/dL (8.7-10.4); CARBON DIOXIDE 22 mEq/L (21-32); CHLORIDE 111 mEq/L (98-107); POTASSIUM 3.9 mEq/L (3.5-5.1); SODIUM 142 mEq/L (136-145)
[2024-10-25 11:13] LABS: CREATININE 0.9 mg/dL (0.6-1.0); GLUCOSE 92 mg/dL (70-105); UREA NITROGEN BLOOD 18 mg/dL (9-23)
[2024-10-25 11:21] LABS: TROPONIN I HIGH SENSITIVITY 41 ng/L (3.0-34)
[2024-10-25 11:46] LABS: HEPATITIS B SURFACE ANTIGEN NEGATIVE (Negative)
[2024-10-25 12:00] VITALS: BP 145/71; PULSE 70; RESP 13; TEMP 36.72516; O2SAT 99
[2024-10-25 12:07] LABS: HEPATITIS C AB REACTIVE (Pos) (Negative)
[2024-10-25 16:00] VITALS: BP 156/78; PULSE 79; RESP 13; TEMP 36.6696; O2SAT 98
[2024-10-25] MEDS: MENTHOL/LANOLIN/CALAMINE/ZN OX OINT 71GM TOP SCH (16:52)
[2024-10-25 21:10] VITALS: BP 144/69; PULSE 76; RESP 14; TEMP 36.55848; O2SAT 94
[2024-10-26] VITALS (7 sets, daily range): BP systolic 119–181; BP diastolic 72–85; PULSE 69–80; RESP 13–20; TEMP 36.28068–37.16964; O2SAT 97–100
[2024-10-26] MEDS: ACETAMINOPHEN 325MG TABLET PO PRN (22:16)
[2024-10-27] VITALS: BP 140/71; PULSE 69; RESP 20; TEMP 36.28068; O2SAT 100
[2024-10-27 04:00] VITALS: BP 151/73; PULSE 74; RESP 19; TEMP 36.50292; O2SAT 97
[2024-10-27 08:00] VITALS: BP 149/73; PULSE 68; RESP 18; TEMP 36.72516; O2SAT 100
[2024-10-27 12:00] VITALS: BP 125/69; PULSE 69; RESP 17; TEMP 36.61404; O2SAT 99
[2024-10-27 12:38] VITALS: BP 125/69; PULSE 69; TEMP 97.9; O2SAT 99
== END 2024-10-27 18:31 | disposition hospice, home (50) | DRG 597 ==
LOC: ER 04:03 → 7WST 08:16 → 3WST 15:11 → 8WST 10-26 18:49
PROVIDERS: ADMIT Internal Medicine; ATTEND Internal Medicine
DX: C50.912 Malignant neoplasm of unspecified site of left female breast (principal); I50.33 Acute on chronic diastolic (congestive) heart failure; I11.0 Hypertensive heart disease with heart failure; Z51.5 Encounter for palliative care; J44.9 Chronic obstructive pulmonary disease, unspecified; E11.9 Type 2 diabetes mellitus without complications; Z99.81 Dependence on supplemental oxygen; Z79.4 Long term (current) use of insulin
CPT/HCPCS: 36415; 71045; 80048; 82270; 82962; 83880; 84484; 85025; 85027; 86705; 87340; 99285; A6261; J0360; J1815; J2270; J2405; J7030

== ENCOUNTER 2024-12-05 07:12 | Inpatient (IN) | payer OTHER, MEDICAID ==
[~2024-12-05] VITALS: Ht 195.6 cm; Wt 68.0 kg
[~2024-12-05 07:12] MED LIST changes: +CLOP75TA33; +FLUT16SP15
[2024-12-05] MEDS: MORPHINE SULFATE 2 MG/ML INJ (NOT FOR IM USE) IV NR (08:51)
[2024-12-05] MEDS: ASPIRIN 81MG TABLET PO NR (08:51)
[2024-12-05 09:18] LABS: BASOPHILS % 0.7 % (0.0-2.0); EOSINOPHILS % 0.9 % (0.0-5.0); HEMATOCRIT. 27.9 % (36.0-48.0); HEMOGLOBIN. 9.1 g/dL (12.0-16.0); LYMPHOCYTES % 41.1 % (20.0-50.0); MEAN CORPUSCULAR HEMOGLOBIN 28.6 pg (28.0-32.0); MEAN CORPUSCULAR HGB CONC 32.7 g/dL (31.0-37.0); MEAN CORPUSCULAR VOLUME 87.4 fL (81.0-99.0); MEAN PLATELET VOLUME 8.2 fl (7.4-10.4); MONOCYTES % 8.1 % (2.0-8.0); NEUTROPHILS % 49.2 % (40.0-76.0); PLATELET 179 x1000/uL (130-400); RED BLOOD CELL COUNT 3.19 mill/uL (4.2-5.4); RED CELL DISTRIBUTION WIDTH 13.6 % (11.6-14.6); WHITE BLOOD COUNT 4.2 x1000/uL (4.5-11.0)
[2024-12-05 09:24] LABS: CHLORIDE 108 mEq/L (98-107); POTASSIUM 3.1 mEq/L (3.5-5.1); SODIUM 140 mEq/L (136-145)
[2024-12-05 09:25] LABS: CALCIUM 8.8 mg/dL (8.7-10.4); CARBON DIOXIDE 20 mEq/L (21-32)
[2024-12-05 09:30] LABS: CREATININE 1.3 mg/dL (0.6-1.0); GLUCOSE 152 mg/dL (70-105); UREA NITROGEN BLOOD 21 mg/dL (9-23)
[2024-12-05 10:10] LABS: TROPONIN I HIGH SENSITIVITY 38 ng/L (3.0-34)
[2024-12-05] MEDS: FUROSEMIDE 40MG/4ML VIAL IVP NR (10:45)
[2024-12-05] MEDS: KCL 20MEQ/100ML PREMIX 100 ML IV NR (10:45)
[2024-12-05] MEDS ORDERED: ACETAMINOPHEN 325MG TABLET PO PRN (11:15)
[2024-12-05] MEDS ORDERED: IPRATROPIUM/ALBUTEROL 0.5-3(2.5)MG/3ML NEB HHN PRN (11:15)
[2024-12-05] MEDS ORDERED: DOCUSATE SODIUM 100MG CAPSULE PO PRN (11:15)
[2024-12-05] MEDS ORDERED: GUAIFENESIN 200MG/10ML SUGAR FREE UDC PO PRN (11:15)
[2024-12-05] MEDS ORDERED: CLONIDINE 0.1MG TABLET PO PRN (11:15)
[2024-12-05] MEDS ORDERED: ONDANSETRON HCL 4MG/2ML INJ IV PRN (11:15)
[2024-12-05 11:58] LABS: PHOSPHORUS 3.6 mg/dL (2.5-4.9)
[2024-12-05] MEDS: ENOXAPARIN 40MG/0.4ML SYR SUBCUT SCH (13:00)
[2024-12-05] MEDS ORDERED: NITROGLYCERIN 0.4MG TABLET SL SL SCH (13:15)
[2024-12-05] MEDS ORDERED: AMLODIPINE 10MG TABLET PO SCH (13:15)
[2024-12-05] MEDS: POTASSIUM CHLORIDE 20MEQ TABLET SR PO NR (13:30)
[2024-12-05] MEDS ORDERED: DEXTROSE 50% WATER 50ML SYRINGE IV PRN (13:30)
[2024-12-05] MEDS: MAGNESIUM 2 G PREMIX 50 ML IV NR (14:00)
[2024-12-05 16:00] VITALS: BP 166/83; PULSE 70; RESP 18; TEMP 37.1; O2SAT 100
[2024-12-05 17:17] VITALS: BP 166/83; PULSE 70; RESP 18; TEMP 37.1
[2024-12-05] MEDS: BLOOD SUGAR DIAGNOSTIC STRIP TEST SCH (17:30)
[2024-12-05] MEDS: HYDRALAZINE HCL 25MG TABLET PO SCH (17:30)
[2024-12-05] MEDS: FERROUS SULFATE 325MG TABLET PO SCH (17:30)
[2024-12-05] MEDS: AMLODIPINE 5MG TABLET PO SCH (17:39)
[2024-12-05] MEDS: INSULIN LISPRO 100 UNITS/ML SUBCUT SCH (17:43)
[2024-12-05 20:19] VITALS: BP 134/71; PULSE 70; RESP 20; TEMP 37.1; O2SAT 99
[2024-12-05] MEDS: FAMOTIDINE 20MG TABLET PO SCH (20:38)
[2024-12-05] MEDS: LOSARTAN 50 MG TABLET PO SCH (20:39)
[2024-12-05] MEDS: CARVEDILOL 12.5MG TABLET PO SCH (20:39)
[2024-12-05] MEDS: ACETAMINOPHEN 325MG TABLET PO PRN (20:40)
[2024-12-05] MEDS: INSULIN GLARGINE 100 UNITS/ML SUBCUT SCH (22:27)
[2024-12-05 23:35] VITALS: BP 133/72; PULSE 68; RESP 20; TEMP 36.1; O2SAT 99
[2024-12-06] VITALS (7 sets, daily range): BP systolic 122–194; BP diastolic 64–84; PULSE 65–94; RESP 18–21; TEMP 36.1–36.9; O2SAT 98–100
[2024-12-06 00:37] LABS: CREATINE KINASE MB FRACTION 3.3 ng/mL (0.5-3.6)
[2024-12-06 05:51] LABS: CHLORIDE 110 mEq/L (98-107); POTASSIUM 3.1 mEq/L (3.5-5.1); SODIUM 140 mEq/L (136-145)
[2024-12-06 05:52] LABS: CALCIUM 8.8 mg/dL (8.7-10.4); CARBON DIOXIDE 20 mEq/L (21-32)
[2024-12-06 05:57] LABS: CREATININE 1.2 mg/dL (0.6-1.0); GLUCOSE 130 mg/dL (70-105); UREA NITROGEN BLOOD 24 mg/dL (9-23)
[2024-12-06 05:59] LABS: PHOSPHORUS 4.4 mg/dL (2.5-4.9)
[2024-12-06 06:16] LABS: HEMOGLOBIN 8.5 g/dL (12.0-16.0); MEAN CORPUSCULAR HEMOGLOBIN 28.7 pg (28.0-32.0); MEAN CORPUSCULAR HGB CONC 32.9 g/dL (31.0-37.0); MEAN CORPUSCULAR VOLUME 87.1 fL (81.0-99.0); PLATELET 165 x1000/uL (130-400); RED BLOOD CELL COUNT 2.98 mill/uL (4.2-5.4); RED CELL DISTRIBUTION WIDTH 13.4 % (11.6-14.6); WHITE BLOOD COUNT 3.3 x1000/uL (4.5-11.0)
[2024-12-06] MEDS: ASPIRIN 81MG TABLET PO SCH (09:41)
[2024-12-06] MEDS: ATORVASTATIN CALCIUM 40MG TABLET PO SCH (09:42)
[2024-12-06] MEDS ORDERED: KCL 20MEQ/100ML PREMIX 100 ML IV SCH (10:00)
[2024-12-06] MEDS: POTASSIUM CHLORIDE 20MEQ TABLET SR PO NR (13:54)
[2024-12-06] MEDS: MAGNESIUM 2 G PREMIX 50 ML IV NR (13:55)
== END 2024-12-06 23:12 | disposition home or self-care (01) | DRG 392 ==
LOC: ER 07:12 → 5WST 10:26 → EDBEDREQTM 10:28 → EDBEDREQ 10:28
PROVIDERS: ADMIT Internal Medicine; ATTEND Internal Medicine
DX: K21.9 Gastro-esophageal reflux disease without esophagitis (principal); E87.20 Acidosis, unspecified; I50.32 Chronic diastolic (congestive) heart failure; I24.9 Acute ischemic heart disease, unspecified; I11.0 Hypertensive heart disease with heart failure; D64.9 Anemia, unspecified; E11.9 Type 2 diabetes mellitus without complications; E78.5 Hyperlipidemia, unspecified; E83.42 Hypomagnesemia; E87.6 Hypokalemia; E87.8 Other disorders of electrolyte and fluid balance, not elsewhere classified; H54.8 Legal blindness, as defined in USA; J44.9 Chronic obstructive pulmonary disease, unspecified; F17.210 Nicotine dependence, cigarettes, uncomplicated; Z79.4 Long term (current) use of insulin; Z79.84 Long term (current) use of oral hypoglycemic drugs; Z79.899 Other long term (current) drug therapy; Z85.3 Personal history of malignant neoplasm of breast; Z99.3 Dependence on wheelchair; Z99.81 Dependence on supplemental oxygen
CPT/HCPCS: 36415; 71045; 80048; 82550; 82553; 82962; 83735; 83880; 84100; 84484; 85025; 85027; 93005; 99291; A4606; A4663; J1650; J1815; J1940; J2270; J3475; J3480

== ENCOUNTER 2025-03-12 11:53 | Inpatient (IN) | payer OTHER, MEDICAID ==
[~2025-03-12] VITALS: Ht 165.1 cm; Wt 61.8 kg
[~2025-03-12 11:53] MED LIST changes: -CLOP75TA33; -FERR-63 PO; +GLIP5TAB22 MT; -HYDR25TA PO; -HYDR25TA78 PO; +HYDR50TA40 MT; -INSLIS SUBCUT; -INSU100I28 SUBCUT; -LANTUSUD SUBCUT; -NIRM1TAB8 PO; +P20 MT
[2025-03-12] MEDS: ACETAMINOPHEN 325MG TABLET PO ONE (12:25)
[2025-03-12 12:56] LABS: BASOPHILS % 0.4 % (0.0-2.0); EOSINOPHILS % 1.1 % (0.0-5.0); HEMATOCRIT. 24.3 % (36.0-48.0); HEMOGLOBIN. 7.9 g/dL (12.0-16.0); LYMPHOCYTES % 30.9 % (20.0-50.0); MEAN CORPUSCULAR HEMOGLOBIN 28.8 pg (28.0-32.0); MEAN CORPUSCULAR HGB CONC 32.3 g/dL (31.0-37.0); MEAN CORPUSCULAR VOLUME 89.2 fL (81.0-99.0); MEAN PLATELET VOLUME 8.2 fl (7.4-10.4); MONOCYTES % 10.5 % (2.0-8.0); NEUTROPHILS % 57.1 % (40.0-76.0); PLATELET 146 x1000/uL (130-400); RED BLOOD CELL COUNT 2.73 mill/uL (4.2-5.4); RED CELL DISTRIBUTION WIDTH 15.4 % (11.6-14.6); WHITE BLOOD COUNT 4.8 x1000/uL (4.5-11.0)
[2025-03-12 13:08] LABS: CHLORIDE 112 mEq/L (98-107); POTASSIUM 4.8 mEq/L (3.5-5.1); SODIUM 139 mEq/L (136-145)
[2025-03-12 13:09] LABS: CALCIUM 8.6 mg/dL (8.7-10.4); CARBON DIOXIDE 21 mEq/L (21-32)
[2025-03-12 13:14] LABS: CREATININE 1.2 mg/dL (0.6-1.0); GLUCOSE 356 mg/dL (70-105); UREA NITROGEN BLOOD 19 mg/dL (9-23)
[2025-03-12 13:27] LABS: TROPONIN I HIGH SENSITIVITY 37 ng/L (3.0-34)
[2025-03-12 19:35] VITALS: BP 169/89; PULSE 88; RESP 18; TEMP 36.7
[2025-03-12 20:00] VITALS: BP 172/91; PULSE 106; RESP 23; TEMP 37; O2SAT 95
[2025-03-12] MEDS ORDERED: FURO20TA4 PO (20:50)
[2025-03-12] MEDS ORDERED: HYDR25TA78 PO (20:50)
[2025-03-12] MEDS ORDERED: BENA-8 MT (20:50)
[2025-03-12] MEDS ORDERED: IBUP-2030 PO (20:56)
[2025-03-12] MEDS ORDERED: LORA10TA7 PO (20:56)
[2025-03-12] MEDS ORDERED: POTA-354 PO (20:56)
[2025-03-12] MEDS ORDERED: DEXTROSE 50% WATER 50ML SYRINGE IV PRN (21:15)
[2025-03-12] MEDS ORDERED: IPRATROPIUM/ALBUTEROL 0.5-3(2.5)MG/3ML NEB HHN PRN (21:39)
[2025-03-12] MEDS: BLOOD SUGAR DIAGNOSTIC STRIP TEST SCH (22:09)
[2025-03-12] MEDS: LOSARTAN 50 MG TABLET PO SCH (22:22)
[2025-03-12] MEDS: HYDRALAZINE HCL 25MG TABLET PO SCH (22:23)
[2025-03-12] MEDS: ATORVASTATIN CALCIUM 40MG TABLET PO SCH (22:23)
[2025-03-12] MEDS: INSULIN LISPRO 100 UNITS/ML SUBCUT SCH (22:27)
[2025-03-12] MEDS: INSULIN GLARGINE 100 UNITS/ML SUBCUT SCH (22:28)
[2025-03-12] MEDS: CEFTRIAXONE 1GM/50ML 50 ML IV NR (23:30)
[2025-03-13] VITALS: BP 171/84; PULSE 62; RESP 22; TEMP 36.8; O2SAT 97
[2025-03-13 00:16] LABS: CLARITY URINE CLOUDY (CLEAR); COLOR URINE YELLOW (YELLOW); GLUCOSE URINE 1+ (NEGATIVE); KETONES URINE TRACE (NEGATIVE); LEUKOCYTE ESTERASE URINE 2+ (NEGATIVE); NITRITE URINE NEGATIVE (NEGATIVE); OCCULT BLOOD URINE 1+ (NEGATIVE); PROTEIN URINE 3+ (NEGATIVE); SPECIFIC GRAVITY URINE 1.015 (1.005-1.030); UROBILINOGEN URINE 0.2 E.U./dL (0.2-1.0)
[2025-03-13 01:16] LABS: SQUAMOUS EPITHELIAL CELL URINE 1+ /lpf (RARE/1+)
[2025-03-13 01:17] LABS: BACTERIA URINE 2+; RBC URINE 0-2 /hpf (0-2); WBC URINE 25-50 /hpf (0-2)
[2025-03-13] MEDS: CLONIDINE 0.1MG TABLET PO PRN (01:29)
[2025-03-13 04:00] VITALS: BP 174/84; PULSE 94; RESP 16; TEMP 36.6; O2SAT 100
[2025-03-13] MEDS: HYDRALAZINE 20MG/ML VIAL IV PRN (05:54)
[2025-03-13 08:00] VITALS: BP 180/88; PULSE 95; RESP 15; TEMP 36.7; O2SAT 98
[2025-03-13] MEDS: ASPIRIN 81MG TABLET PO SCH (09:22)
[2025-03-13] MEDS: AMLODIPINE 10MG TABLET PO SCH (09:22)
[2025-03-13 12:00] VITALS: BP 152/75; PULSE 88; RESP 16; TEMP 36.8; O2SAT 97
[2025-03-13 12:25] LABS: HEPATITIS B SURFACE ANTIGEN NEGATIVE (Negative); HEPATITIS C AB REACTIVE (Pos) (Negative)
[2025-03-13] MEDS: ACETAMINOPHEN 650MG/20.3ML UDC PO PRN (12:25)
[2025-03-13] MEDS: MEROPENEM 1G/100ML 100 ML IV SCH (12:25)
[2025-03-13 13:06] LABS: BASOPHILS % 0.5 % (0.0-2.0); EOSINOPHILS % 0.9 % (0.0-5.0); HEMATOCRIT. 23.5 % (36.0-48.0); HEMOGLOBIN. 7.6 g/dL (12.0-16.0); LYMPHOCYTES % 25.7 % (20.0-50.0); MEAN CORPUSCULAR HEMOGLOBIN 28.6 pg (28.0-32.0); MEAN CORPUSCULAR HGB CONC 32.3 g/dL (31.0-37.0); MEAN CORPUSCULAR VOLUME 88.4 fL (81.0-99.0); MEAN PLATELET VOLUME 8.2 fl (7.4-10.4); MONOCYTES % 7.5 % (2.0-8.0); NEUTROPHILS % 65.4 % (40.0-76.0); PLATELET 141 x1000/uL (130-400); RED BLOOD CELL COUNT 2.66 mill/uL (4.2-5.4); RED CELL DISTRIBUTION WIDTH 15.5 % (11.6-14.6); WHITE BLOOD COUNT 7.7 x1000/uL (4.5-11.0)
[2025-03-13 13:13] LABS: CALCIUM 8.3 mg/dL (8.7-10.4); CARBON DIOXIDE 22 mEq/L (21-32); CHLORIDE 110 mEq/L (98-107); POTASSIUM 4.5 mEq/L (3.5-5.1); SODIUM 138 mEq/L (136-145)
[2025-03-13 13:18] LABS: CREATININE 1.1 mg/dL (0.6-1.0); GLUCOSE 266 mg/dL (70-105)
[2025-03-13 13:19] LABS: LDL CHOLESTEROL 118 mg/dL (5-100); TRIGLYCERIDE 208 mg/dL (0-150); UREA NITROGEN BLOOD 23 mg/dL (9-23)
[2025-03-13 13:20] LABS: CHOLESTEROL 181 mg/dL (<200); HDL CHOLESTEROL 37 mg/dL (>65)
[2025-03-13 16:00] VITALS: BP 135/70; PULSE 90; RESP 13; TEMP 37.2; O2SAT 99
[2025-03-13 20:00] VITALS: BP 124/65; PULSE 85; RESP 17; TEMP 37.2; O2SAT 100
[2025-03-13] MEDS ORDERED: CEFTRIAXONE 1GM/50ML 50 ML IV SCH (20:00)
[2025-03-14] VITALS (7 sets, daily range): BP systolic 136–157; BP diastolic 69–81; PULSE 85–92; RESP 14–20; TEMP 36.4–37; O2SAT 99–100
[2025-03-14] MEDS ORDERED: SULF1TAB48 MT (09:21)
[2025-03-14] MEDS: MEROPENEM 1G/100ML 100 ML IV SCH (15:15)
[2025-03-15] VITALS: BP 144/64; PULSE 88; RESP 16; TEMP 36.9; O2SAT 99
[2025-03-15 04:00] VITALS: BP 147/71; PULSE 90; RESP 15; TEMP 36.6; O2SAT 98
[2025-03-15 08:00] VITALS: BP 159/78; PULSE 89; RESP 16; TEMP 36.6; O2SAT 100
[2025-03-15 12:00] VITALS: BP 153/76; PULSE 85; RESP 16; TEMP 36.4; O2SAT 100
[2025-03-20] MEDS ORDERED: OMEP40CA20 MT (15:24)
== END 2025-03-15 14:32 | disposition home or self-care (01) | DRG 690 ==
LOC: ER 11:53 → EDBEDREQ 16:16 → EDBEDREQTM 17:36 → 3WST 18:10
PROVIDERS: ADMIT Internal Medicine; ATTEND Internal Medicine
DX: N39.0 Urinary tract infection, site not specified (principal); D64.9 Anemia, unspecified; E11.9 Type 2 diabetes mellitus without complications; Z20.822 Contact with and (suspected) exposure to COVID-19; I10 Essential (primary) hypertension; E78.5 Hyperlipidemia, unspecified; F17.210 Nicotine dependence, cigarettes, uncomplicated; J44.9 Chronic obstructive pulmonary disease, unspecified; Z85.3 Personal history of malignant neoplasm of breast
CPT/HCPCS: 36415; 71045; 80048; 80061; 81003; 82962; 83036; 84484; 85025; 86705; 87186; 87340; 87426; 93005; 99291; A4606; J0360; J0696; J1815; J2185

== ENCOUNTER 2025-05-27 20:36 | Inpatient (IN) | payer OTHER, MEDICAID, MEDICARE ==
[~2025-05-27] VITALS: Ht 165.1 cm; Wt 56.5 kg
[~2025-05-27 20:36] MED LIST changes: +BENA-8 MT; +FE300LUD PO; +FURO20TA4 PO; -GLIP5TAB22 MT; +HYDR50TA39 PO; -HYDR50TA40 MT; +LEVE1000 MT; +LORA10TA7 PO; +OMEP40CA20 MT; -P20 MT
[2025-05-27 21:32] LABS: BASOPHILS % 0.4 % (0.0-2.0); EOSINOPHILS % 6.3 % (0.0-5.0); HEMATOCRIT. 24.9 % (36.0-48.0); HEMOGLOBIN. 8.1 g/dL (12.0-16.0); LYMPHOCYTES % 30.9 % (20.0-50.0); MEAN PLATELET VOLUME 7.4 fl (7.4-10.4); MONOCYTES % 10.8 % (2.0-8.0); NEUTROPHILS % 51.6 % (40.0-76.0); PLATELET 168 x1000/uL (130-400); RED BLOOD CELL COUNT 2.92 mill/uL (4.2-5.4); RED CELL DISTRIBUTION WIDTH 14.2 % (11.6-14.6)
[2025-05-27 21:48] LABS: CREATININE 1.1 mg/dL (0.6-1.0); UREA NITROGEN BLOOD 16 mg/dL (9-23)
[2025-05-27 21:50] LABS: TROPONIN I HIGH SENSITIVITY 29 ng/L (3.0-34)
[2025-05-28] VITALS (8 sets, daily range): BP systolic 150–187; BP diastolic 64–92; PULSE 68–76; RESP 18–20; TEMP 35.7–36.7; O2SAT 93–100
[2025-05-28] MEDS: CLONIDINE 0.1MG TABLET PO ONE (00:30)
[2025-05-28] MEDS ORDERED: DOCUSATE SODIUM 100MG CAPSULE PO PRN (01:30)
[2025-05-28] MEDS ORDERED: IPRATROPIUM/ALBUTEROL 0.5-3(2.5)MG/3ML NEB HHN PRN (01:30)
[2025-05-28] MEDS ORDERED: MAGNESIUM/ALUMINUM HYDROXIDE/SIMETHICONE 30ML UDC PO PRN (01:30)
[2025-05-28] MEDS ORDERED: ONDANSETRON HCL 4MG/2ML INJ IV PRN (01:30)
[2025-05-28] MEDS ORDERED: DEXTROSE 50% WATER 50ML SYRINGE IV PRN ×2 (01:30)
[2025-05-28] MEDS ORDERED: ASPI-1406 PO (03:07)
[2025-05-28] MEDS: BLOOD SUGAR DIAGNOSTIC STRIP TEST SCH (06:54)
[2025-05-28] MEDS: INSULIN LISPRO 100 UNITS/ML SUBCUT SCH (07:29)
[2025-05-28] MEDS ORDERED: MEDICATION NOT ON FORMULARY EA (Levetiracetam (Keppra) 1 TAB) MT SCH (09:30)
[2025-05-28] MEDS ORDERED: MEDICATION NOT ON FORMULARY EA (Benazepril Hcl 1 TAB) MT SCH (09:30)
[2025-05-28] MEDS ORDERED: MEDICATION NOT ON FORMULARY EA (Omeprazole 1 CAP) MT SCH (09:30)
[2025-05-28] MEDS ORDERED: LOSARTAN 50 MG TABLET PO SCH (09:30)
[2025-05-28] MEDS: FLUTICASONE PROPIONATE 50MCG/SPRAY BOTTLE BOTHNSTRLS SCH (11:00)
[2025-05-28] MEDS: LEVETIRACETAM 500MG TABLET PO SCH ×2 (13:25→21:28)
[2025-05-28] MEDS: FUROSEMIDE 20MG TABLET PO SCH (13:26)
[2025-05-28] MEDS: POTASSIUM CHLORIDE 20MEQ TABLET SR PO PRN (13:26)
[2025-05-28] MEDS: HYDROCODONE/ACETAMINOPHEN 5/325MG TABLET PO PRN (13:26)
[2025-05-28] MEDS: METFORMIN HCL 500MG TABLET PO SCH (13:27)
[2025-05-28] MEDS: AMLODIPINE 10MG TABLET PO SCH (13:27)
[2025-05-28] MEDS: ASPIRIN 81MG TABLET PO SCH (13:28)
[2025-05-28] MEDS: ENOXAPARIN 40MG/0.4ML SYR SUBCUT SCH (13:28)
[2025-05-28] MEDS: FERROUS SULFATE 300MG/5ML UDC PO SCH (13:28)
[2025-05-28] MEDS: HYDRALAZINE HCL 100MG TABLET PO SCH (13:31)
[2025-05-28] MEDS: CARVEDILOL 12.5MG TABLET PO SCH (21:28)
[2025-05-28] MEDS: ATORVASTATIN CALCIUM 40MG TABLET PO SCH (21:46)
[2025-05-29] VITALS: BP 140/71; PULSE 70; RESP 18; TEMP 36.8; O2SAT 96
[2025-05-29 04:12] VITALS: BP 161/79; PULSE 69; RESP 18; TEMP 36.4; O2SAT 98
[2025-05-29] MEDS: CLONIDINE 0.1MG TABLET PO PRN (05:14)
[2025-05-29 07:10] LABS: BASOPHILS % 0.3 % (0.0-2.0); EOSINOPHILS % 4.1 % (0.0-5.0); HEMATOCRIT. 23.6 % (36.0-48.0); HEMOGLOBIN. 7.9 g/dL (12.0-16.0); LYMPHOCYTES % 40.3 % (20.0-50.0); MEAN PLATELET VOLUME 7.9 fl (7.4-10.4); MONOCYTES % 9.8 % (2.0-8.0); NEUTROPHILS % 45.5 % (40.0-76.0); PLATELET 163 x1000/uL (130-400); RED BLOOD CELL COUNT 2.80 mill/uL (4.2-5.4); RED CELL DISTRIBUTION WIDTH 14.2 % (11.6-14.6)
[2025-05-29 07:18] LABS: CREATININE 0.9 mg/dL (0.6-1.0); TROPONIN I HIGH SENSITIVITY 25 ng/L (3.0-34)
[2025-05-29 07:19] LABS: TRIGLYCERIDE 141 mg/dL (0-150); UREA NITROGEN BLOOD 14 mg/dL (9-23)
[2025-05-29 07:20] LABS: ASPARTATE AMINOTRANSFERASE 23 IU/L (<34); LDL CHOLESTEROL 51 mg/dL (5-100); PROTEIN TOTAL 5.6 g/dL (6.0-8.3)
[2025-05-29 07:21] LABS: BILIRUBIN DIRECT < 0.1 mg/dL (<=3.0); BILIRUBIN TOTAL < 0.2 mg/dL (0.1-1.0); PHOSPHORUS 3.7 mg/dL (2.5-4.9)
[2025-05-29 07:22] LABS: T4 FREE 1.08 ng/dL (0.89-1.76)
[2025-05-29 07:37] LABS: CLARITY URINE CLEAR (CLEAR); COLOR URINE YELLOW (YELLOW); GLUCOSE URINE NEGATIVE (NEGATIVE); KETONES URINE NEGATIVE (NEGATIVE); LEUKOCYTE ESTERASE URINE NEGATIVE (NEGATIVE); NITRITE URINE NEGATIVE (NEGATIVE); OCCULT BLOOD URINE NEGATIVE (NEGATIVE); PH URINE 5.5 (4.5-8.0); PROTEIN URINE 3+ (NEGATIVE); SPECIFIC GRAVITY URINE 1.013 (1.005-1.030); UROBILINOGEN URINE 0.2 E.U./dL (0.2-1.0)
[2025-05-29 07:54] LABS: *AMPHETAMINES SCREEN URINE NEGATIVE (NEGATIVE)
[2025-05-29 07:55] LABS: *BARBITURATES SCREEN URINE NEGATIVE (NEGATIVE); *BENZODIAZEPINES SCREEN URINE NEGATIVE (NEGATIVE); *COCAINE SCREEN URINE NEGATIVE (NEGATIVE)
[2025-05-29 07:56] LABS: CANNABINOID URINE SCREEN NEGATIVE (NEGATIVE); ECSTASY MDMA SCREEN URINE NEGATIVE (NEGATIVE); METHADONE URINE SCREEN NEGATIVE (NEGATIVE); OPIATES URINE SCREEN NEGATIVE (NEGATIVE); PHENCYCLIDINE URINE SCREEN NEGATIVE (NEGATIVE)
[2025-05-29 08:00] VITALS: BP 153/78; PULSE 71; RESP 18; TEMP 36.5; O2SAT 99
[2025-05-29 08:12] LABS: SQUAMOUS EPITHELIAL CELL URINE 1+ /lpf (RARE/1+)
[2025-05-29 08:13] LABS: BACTERIA URINE 1+
[2025-05-29 08:15] LABS: RBC URINE 0-2 /hpf (0-2)
[2025-05-29] MEDS: LISINOPRIL 20MG TABLET PO SCH (09:06)
[2025-05-29] MEDS: PANTOPRAZOLE 40MG DR TABLET PO SCH (09:07)
[2025-05-29 12:00] VITALS: BP 146/69; PULSE 73; RESP 18; TEMP 36.5; O2SAT 98
[2025-05-29 16:00] VITALS: BP 145/76; PULSE 72; RESP 20; TEMP 36.5; O2SAT 99
[2025-05-29] MEDS: HYDRALAZINE HCL 100MG TABLET PO SCH (17:44)
[2025-05-29 20:00] VITALS: BP 143/67; PULSE 73; RESP 19; TEMP 36.4; O2SAT 95
[2025-05-30] VITALS: BP 140/58; PULSE 75; RESP 18; TEMP 36.4; O2SAT 96
[2025-05-30 04:00] VITALS: BP 142/60; PULSE 78; RESP 20; TEMP 36.3; O2SAT 97
[2025-05-30 07:05] LABS: BASOPHILS % 0.2 % (0.0-2.0); EOSINOPHILS % 3.2 % (0.0-5.0); HEMATOCRIT. 23.5 % (36.0-48.0); HEMOGLOBIN. 7.5 g/dL (12.0-16.0); LYMPHOCYTES % 39.2 % (20.0-50.0); MEAN PLATELET VOLUME 8.3 fl (7.4-10.4); MONOCYTES % 8.6 % (2.0-8.0); NEUTROPHILS % 48.8 % (40.0-76.0); PLATELET 146 x1000/uL (130-400); RED BLOOD CELL COUNT 2.73 mill/uL (4.2-5.4); RED CELL DISTRIBUTION WIDTH 14.4 % (11.6-14.6)
[2025-05-30 07:22] LABS: UREA NITROGEN BLOOD 22 mg/dL (9-23)
[2025-05-30 07:23] LABS: CREATININE 1.1 mg/dL (0.6-1.0)
[2025-05-30 07:25] LABS: ASPARTATE AMINOTRANSFERASE 30 IU/L (<34)
[2025-05-30 07:26] LABS: BILIRUBIN DIRECT < 0.1 mg/dL (<=3.0); BILIRUBIN TOTAL < 0.2 mg/dL (0.1-1.0); PHOSPHORUS 3.5 mg/dL (2.5-4.9); PROTEIN TOTAL 5.5 g/dL (6.0-8.3)
[2025-05-30 08:00] VITALS: BP 142/70; PULSE 74; RESP 18; TEMP 36.4; O2SAT 93
[2025-05-30 12:00] VITALS: BP 148/67; PULSE 70; RESP 17; TEMP 36.8; O2SAT 91
[2025-05-30 16:00] VITALS: BP 155/68; PULSE 75; RESP 16; TEMP 36.9; O2SAT 97
[2025-05-30] MEDS: ACETAMINOPHEN 325MG TABLET PO PRN (17:56)
[2025-05-30 20:00] VITALS: BP 152/75; PULSE 72; RESP 20; TEMP 36.8; O2SAT 96
[2025-05-31] VITALS (7 sets, daily range): BP systolic 128–154; BP diastolic 71–79; PULSE 65–85; RESP 16–19; TEMP 36.2–37; O2SAT 97–100
[2025-05-31 09:05] LABS: LACTATE DEHYDROGENASE 181 IU/L (120-246)
[2025-05-31] MEDS ORDERED: HYDR100T31 PO (12:34)
[2025-06-01 04:00] VITALS: BP 158/73; PULSE 78; RESP 19; TEMP 36.7
[2025-06-01 08:00] VITALS: BP 154/71; PULSE 74; RESP 18; TEMP 37; O2SAT 98
[2025-06-01 12:00] VITALS: BP 150/72; PULSE 75; RESP 20; TEMP 36.7; O2SAT 98
[2025-06-03 17:10] LABS: ERYTHROPOIETIN SERUM 16.6 mIU/mL (2.6-18.5)
[2025-06-04 09:11] LABS: HGB A 97.6 % (96.4-98.8); HGB A2 2.4 % (1.8-3.2); HGB F 0.0 % (0.0-2.0); HGB S 0.0 % (0.0)
[2025-06-05] MEDS ORDERED: ALBU90AE INH (19:19)
[2025-06-05] MEDS ORDERED: P50 MT (19:19)
== END 2025-06-01 16:50 | disposition home or self-care (01) | DRG 639 ==
LOC: ER 20:36 → 7WST 23:14 → EDBEDREQ 23:29 → EDBEDREQTM 23:29 → ENRESERV 23:52
PROVIDERS: ADMIT Family Medicine Adult Medicine; ATTEND Family Medicine Adult Medicine
DX: E11.649 Type 2 diabetes mellitus with hypoglycemia without coma (principal); J44.9 Chronic obstructive pulmonary disease, unspecified; D64.9 Anemia, unspecified; E78.5 Hyperlipidemia, unspecified; G40.909 Epilepsy, unspecified, not intractable, without status epilepticus; H54.8 Legal blindness, as defined in USA; I25.10 Atherosclerotic heart disease of native coronary artery without angina pectoris; I25.2 Old myocardial infarction; Z88.1 Allergy status to other antibiotic agents; Z79.82 Long term (current) use of aspirin; Z79.84 Long term (current) use of oral hypoglycemic drugs; Z79.899 Other long term (current) drug therapy; Z85.3 Personal history of malignant neoplasm of breast; I10 Essential (primary) hypertension; I51.7 Cardiomegaly
CPT/HCPCS: 36415; 71045; 80048; 80061; 80076; 80305; 81003; 82668; 82784; 82962; 83021; 83036; 83615; 83735; 83880; 84100; 84439; 84484; 85025; 85660; 86300; 86334; 86880; 93005; 93306; 93880; 93970; 99285; A4606; J1650; J1815

== ENCOUNTER 2025-06-08 17:47 | Emergency (ER) | payer OTHER, MEDICAID ==
[~2025-06-08] VITALS: Ht 165.1 cm; Wt 50.0 kg
[~2025-06-08 17:47] MED LIST changes: +HYDR100T31 PO; -LOSA50TA41 PO; +P50 MT
[2025-06-08 17:48] VITALS: TEMP 36.9; O2SAT 100
[2025-06-08] MEDS: LEVETIRACETAM 500MG PREMIX 100 ML IV ONE (18:13)
[2025-06-08 18:19] LABS: BASOPHILS % 0.8 % (0.0-2.0); EOSINOPHILS % 0.7 % (0.0-5.0); HEMATOCRIT. 23.6 % (36.0-48.0); HEMOGLOBIN. 7.5 g/dL (12.0-16.0); LYMPHOCYTES % 30.8 % (20.0-50.0); MEAN PLATELET VOLUME 8.0 fl (7.4-10.4); MONOCYTES % 6.7 % (2.0-8.0); NEUTROPHILS % 61.0 % (40.0-76.0); PLATELET 154 x1000/uL (130-400); RED BLOOD CELL COUNT 2.70 mill/uL (4.2-5.4); RED CELL DISTRIBUTION WIDTH 15.1 % (11.6-14.6)
[2025-06-08 18:52] LABS: CREATININE 1.2 mg/dL (0.6-1.0); ETHANOL BLOOD < 10 mg/dL (<10); UREA NITROGEN BLOOD 30 mg/dL (9-23)
[2025-06-08] MEDS: LABETALOL 5MG/ML 4ML INJ IV ONE (22:23)
[2025-06-08 23:56] VITALS: BP 184/97; PULSE 92; RESP 13; O2SAT 100
[2025-06-11] MEDS ORDERED: LEVE1000 MT (10:04)
[2025-06-11] MEDS ORDERED: METF-414 MT (10:04)
[2025-06-11] MEDS ORDERED: BENA-8 MT (10:04)
[2025-06-11] MEDS ORDERED: COR12 PO (10:04)
[2025-06-11] MEDS ORDERED: FURO20TA4 PO (10:04)
[2025-06-11] MEDS ORDERED: OMEP40CA20 MT (10:04)
[2025-06-11] MEDS ORDERED: AMLO10TA80 PO (10:04)
[2025-06-11] MEDS ORDERED: FE300LUD PO (10:04)
[2025-06-11] MEDS ORDERED: ATOR40TA70 PO (10:04)
[2025-06-11] MEDS ORDERED: ASPI-1160 PO (10:04)
[2025-06-11] MEDS ORDERED: HYDR50TA39 PO (10:04)
[2025-06-12] MEDS ORDERED: HYDR100T31 PO (08:47)
== END 2025-06-09 00:09 | disposition home or self-care (01) ==
LOC: ER 17:47
DX: R56.9 Unspecified convulsions (principal); I11.0 Hypertensive heart disease with heart failure; I50.9 Heart failure, unspecified; J44.9 Chronic obstructive pulmonary disease, unspecified; E11.65 Type 2 diabetes mellitus with hyperglycemia; I25.2 Old myocardial infarction; Z79.899 Other long term (current) drug therapy; Z79.84 Long term (current) use of oral hypoglycemic drugs; Z79.82 Long term (current) use of aspirin; Z91.040 Latex allergy status
CPT/HCPCS: 80048; 80320; 85025; 36415; 93005; 96365; 96375; 99285; J1953; J3490; G0480

== ENCOUNTER 2025-06-12 22:04 | Emergency (ER) | payer OTHER, MEDICAID ==
[~2025-06-12] VITALS: Ht 162.6 cm; Wt 64.0 kg
[~2025-06-12 22:04] MED LIST changes: -P50 MT
[2025-06-12 22:11] VITALS: O2SAT 100
[2025-06-12 23:45] VITALS: BP 158/80; PULSE 74; RESP 22; TEMP 36.9; O2SAT 100
== END 2025-06-12 23:59 | disposition home or self-care (01) ==
LOC: ER 22:04
DX: J44.9 Chronic obstructive pulmonary disease, unspecified (principal); R56.9 Unspecified convulsions; E11.9 Type 2 diabetes mellitus without complications; I10 Essential (primary) hypertension; I16.0 Hypertensive urgency; Z79.82 Long term (current) use of aspirin; Z79.84 Long term (current) use of oral hypoglycemic drugs; Z79.899 Other long term (current) drug therapy
CPT/HCPCS: 99283

== ENCOUNTER 2025-08-13 17:24 | Emergency (ER) | payer OTHER, MEDICAID ==
[~2025-08-13] VITALS: Ht 157.5 cm; Wt 73.0 kg
[~2025-08-13 17:24] MED LIST changes: -AMLO10TA80 PO; +AMLO5TAB88 PO; +ATEN50TA PO; -ATOR40TA70 PO; -BENA-8 MT; +CLON0.1T PO; -COR12 PO; -FE300LUD PO; -FLUT16SP15; -FURO20TA4 PO; +GABA-529 PO; -HYDR50TA39 PO; +KEPP500 PO; -LEVE1000 MT; -LORA10TA7 PO; -METF-414 MT; -NITR0.4T49 SL; -OMEP40CA20 MT; +PANT40TA51 PO; +TOPUD PO
[2025-08-13 17:56] VITALS: TEMP 36.7; O2SAT 99
[2025-08-13 20:44] VITALS: BP 171/98; PULSE 68; RESP 14; O2SAT 100
== END 2025-08-13 20:46 | disposition home or self-care (01) ==
LOC: ER 17:24
DX: Z45.2 Encounter for adjustment and management of vascular access device (principal); I10 Essential (primary) hypertension; E11.9 Type 2 diabetes mellitus without complications; J44.9 Chronic obstructive pulmonary disease, unspecified; Z79.82 Long term (current) use of aspirin; Z79.899 Other long term (current) drug therapy; Z91.040 Latex allergy status
CPT/HCPCS: 99282

== ENCOUNTER 2025-08-15 22:14 | Inpatient (IN) | payer OTHER, MEDICAID, MEDICARE ==
[~2025-08-15] VITALS: Ht 157.5 cm; Wt 56.5 kg
[2025-08-15 22:19] VITALS: O2SAT 98
[2025-08-15] MEDS: ACETAMINOPHEN 325MG TABLET PO ONE (23:19)
[2025-08-15 23:31] LABS: BASOPHILS % 1.0 % (0.0-2.0); EOSINOPHILS % 0.6 % (0.0-5.0); HEMATOCRIT. 26.0 % (36.0-48.0); HEMOGLOBIN. 8.4 g/dL (12.0-16.0); LYMPHOCYTES % 18.2 % (20.0-50.0); MEAN PLATELET VOLUME 8.1 fl (7.4-10.4); MONOCYTES % 4.7 % (2.0-8.0); NEUTROPHILS % 75.5 % (40.0-76.0); PLATELET 229 x1000/uL (130-400); RED BLOOD CELL COUNT 3.25 mill/uL (4.2-5.4); RED CELL DISTRIBUTION WIDTH 14.9 % (11.6-14.6)
[2025-08-15 23:47] LABS: CREATININE 1.9 mg/dL (0.6-1.0); UREA NITROGEN BLOOD 20.0 mg/dL (9-23)
[2025-08-16] MEDS: ONDANSETRON HCL 4MG/2ML INJ IV ONE (00:49)
[2025-08-16] MEDS: SODIUM CHLORIDE 0.9% 500 ML IV ONE (01:56)
[2025-08-16 04:57] VITALS: BP 140/67; PULSE 98; RESP 17; TEMP 36.696
[2025-08-16] MEDS ORDERED: MAGNESIUM/ALUMINUM HYDROXIDE/SIMETHICONE 30ML UDC PO PRN (05:00)
[2025-08-16] MEDS: POTASSIUM CHLORIDE 20MEQ/PACKET PO NR (05:00)
[2025-08-16] MEDS ORDERED: ONDANSETRON HCL 4MG/2ML INJ IV PRN (05:00)
[2025-08-16] MEDS ORDERED: IPRATROPIUM/ALBUTEROL 0.5-3(2.5)MG/3ML NEB HHN PRN (05:00)
[2025-08-16] MEDS ORDERED: ACETAMINOPHEN 325MG TABLET PO PRN (05:00)
[2025-08-16] MEDS: HYDRALAZINE HCL 100MG TABLET PO SCH (05:40)
[2025-08-16] MEDS: GABAPENTIN 100MG CAPSULE PO SCH (05:40)
[2025-08-16] MEDS: PANTOPRAZOLE 40MG DR TABLET PO SCH (06:23)
[2025-08-16 08:00] VITALS: BP 122/61; PULSE 77; RESP 15; TEMP 36.2; O2SAT 96
[2025-08-16] MEDS: LEVETIRACETAM 500MG TABLET PO SCH (08:55)
[2025-08-16] MEDS: ASPIRIN 81MG TABLET PO SCH (08:56)
[2025-08-16] MEDS: ENOXAPARIN 30MG/0.3ML SYR SUBCUT SCH (08:56)
[2025-08-16] MEDS: AMLODIPINE 5MG TABLET PO SCH (08:56)
[2025-08-16] MEDS: ATENOLOL 50 MG TABLET PO SCH (08:58)
[2025-08-16 12:00] VITALS: BP 124/67; PULSE 77; RESP 13; TEMP 36.4; O2SAT 95
[2025-08-16 16:00] VITALS: BP 141/68; PULSE 76; RESP 15; TEMP 36.3; O2SAT 96
[2025-08-16] MEDS: CEFTRIAXONE 1GM/50ML 50 ML IV SCH (16:24)
[2025-08-16 20:00] VITALS: BP 145/70; PULSE 75; RESP 19; TEMP 36.6; O2SAT 100
[2025-08-17] VITALS: BP 149/73; PULSE 75; RESP 18; TEMP 36.6; O2SAT 98
[2025-08-17 04:00] VITALS: BP 144/78; PULSE 76; RESP 18; TEMP 36.5; O2SAT 99
[2025-08-17 05:40] LABS: *AMPHETAMINES SCREEN URINE NEGATIVE (NEGATIVE); *BARBITURATES SCREEN URINE NEGATIVE (NEGATIVE); *BENZODIAZEPINES SCREEN URINE NEGATIVE (NEGATIVE); *COCAINE SCREEN URINE NEGATIVE (NEGATIVE); CANNABINOID URINE SCREEN NEGATIVE (NEGATIVE); ECSTASY MDMA SCREEN URINE NEGATIVE (NEGATIVE); METHADONE URINE SCREEN NEGATIVE (NEGATIVE); OPIATES URINE SCREEN NEGATIVE (NEGATIVE); PHENCYCLIDINE URINE SCREEN NEGATIVE (NEGATIVE)
[2025-08-17 05:52] LABS: CLARITY URINE CLEAR (CLEAR); COLOR URINE YELLOW (YELLOW); GLUCOSE URINE NEGATIVE (NEGATIVE); KETONES URINE NEGATIVE (NEGATIVE); LEUKOCYTE ESTERASE URINE 2+ (NEGATIVE); NITRITE URINE NEGATIVE (NEGATIVE); OCCULT BLOOD URINE NEGATIVE (NEGATIVE); PH URINE 5.5 (4.5-8.0); PROTEIN URINE 3+ (NEGATIVE); SPECIFIC GRAVITY URINE 1.012 (1.005-1.030); UROBILINOGEN URINE 0.2 E.U./dL (0.2-1.0)
[2025-08-17 06:20] LABS: BACTERIA URINE 2+; SQUAMOUS EPITHELIAL CELL URINE FEW /lpf (RARE/1+); WBC URINE 15-25 /hpf (0-2)
[2025-08-17 07:41] LABS: CREATININE 1.5 mg/dL (0.6-1.0)
[2025-08-17 07:42] LABS: UREA NITROGEN BLOOD 21 mg/dL (9-23)
[2025-08-17 07:44] LABS: PHOSPHORUS 3.2 mg/dL (2.5-4.9)
[2025-08-17 08:00] VITALS: BP 155/74; PULSE 74; RESP 16; TEMP 36.6; O2SAT 97
[2025-08-17 09:10] LABS: BASOPHILS % 0.1 % (0.0-2.0); EOSINOPHILS % 0.4 % (0.0-5.0); HEMATOCRIT. 23.9 % (36.0-48.0); HEMOGLOBIN. 7.6 g/dL (12.0-16.0); LYMPHOCYTES % 16.1 % (20.0-50.0); MEAN PLATELET VOLUME 8.3 fl (7.4-10.4); MONOCYTES % 7.2 % (2.0-8.0); NEUTROPHILS % 76.2 % (40.0-76.0); PLATELET 204 x1000/uL (130-400); RED BLOOD CELL COUNT 3.00 mill/uL (4.2-5.4); RED CELL DISTRIBUTION WIDTH 14.8 % (11.6-14.6)
[2025-08-17 12:00] VITALS: BP 165/75; PULSE 71; RESP 15; TEMP 36.4; O2SAT 96
[2025-08-17] MEDS: FERROUS SULFATE 325MG TABLET PO SCH (17:36)
[2025-08-17] MEDS: MEROPENEM 1G/100ML 100 ML IV SCH (17:36)
[2025-08-17 20:00] VITALS: BP 163/72; PULSE 73; RESP 17; TEMP 36.6; O2SAT 98
[2025-08-18] VITALS: BP 139/78; PULSE 69; RESP 17; TEMP 36.6; O2SAT 99
[2025-08-18 04:00] VITALS: BP 142/77; PULSE 69; RESP 17; TEMP 36.4; O2SAT 99
[2025-08-18 08:00] VITALS: BP 160/76; PULSE 70; RESP 15; TEMP 36.3; O2SAT 96
[2025-08-18 12:00] VITALS: BP 162/76; PULSE 73; RESP 19; TEMP 36.6; O2SAT 99
[2025-08-18 16:00] VITALS: BP 161/74; PULSE 74; RESP 20; TEMP 36.4; O2SAT 97
[2025-08-18] MEDS: CLONIDINE 0.1MG TABLET PO PRN (17:13)
[2025-08-18 20:00] VITALS: BP 146/68; PULSE 84; RESP 19; TEMP 38; O2SAT 98
[2025-08-18] MEDS: ACETAMINOPHEN 325MG TABLET PO PRN (22:11)
[2025-08-19] VITALS: BP 120/60; PULSE 73; RESP 19; TEMP 36.7; O2SAT 99
[2025-08-19 04:00] VITALS: BP 135/69; PULSE 71; RESP 19; TEMP 36.4; O2SAT 100
[2025-08-19 08:00] VITALS: BP 136/64; PULSE 73; RESP 17; TEMP 36.5; O2SAT 99
[2025-08-19 12:00] VITALS: BP 134/68; PULSE 76; RESP 18; TEMP 36.7; O2SAT 97
[2025-08-19 16:00] VITALS: BP 129/65; PULSE 77; RESP 17; TEMP 36.4; O2SAT 99
[2025-08-19 20:00] VITALS: BP 147/75; PULSE 81; RESP 19; TEMP 38.1; O2SAT 96
[2025-08-20 07:51] LABS: BASOPHILS % 0.2 % (0.0-2.0); EOSINOPHILS % 1.7 % (0.0-5.0); HEMATOCRIT. 22.8 % (36.0-48.0); HEMOGLOBIN. 7.3 g/dL (12.0-16.0); LYMPHOCYTES % 20.4 % (20.0-50.0); MEAN PLATELET VOLUME 8.3 fl (7.4-10.4); MONOCYTES % 10.8 % (2.0-8.0); NEUTROPHILS % 66.9 % (40.0-76.0); PLATELET 185 x1000/uL (130-400); RED BLOOD CELL COUNT 2.87 mill/uL (4.2-5.4); RED CELL DISTRIBUTION WIDTH 14.6 % (11.6-14.6)
[2025-08-20 08:00] VITALS: BP 122/59; PULSE 72; RESP 17; TEMP 36.8; O2SAT 96
[2025-08-20 09:08] LABS: CREATININE 1.3 mg/dL (0.6-1.0); UREA NITROGEN BLOOD 24.0 mg/dL (9-23)
[2025-08-20 12:00] VITALS: BP_SYST 136; BP_SYST 158; BP_DIAS 67; BP_DIAS 89; PULSE 72; RESP 17; TEMP 36.6; O2SAT 100
[2025-08-20] MEDS ORDERED: DEXTROSE 50% WATER 50ML SYRINGE IV PRN (13:00)
[2025-08-20] MEDS: POTASSIUM CHLORIDE 20MEQ TABLET SR PO NR (13:13)
[2025-08-20 16:00] VITALS: BP 144/65; PULSE 75; RESP 17; TEMP 37.1; O2SAT 97
[2025-08-20 16:04] VITALS: BP 144/65; PULSE 75; RESP 17; TEMP 36.6; O2SAT 100
[2025-08-20] MEDS: INSULIN LISPRO 100 UNITS/ML SUBCUT SCH (16:56)
[2025-08-20] MEDS: BLOOD SUGAR DIAGNOSTIC STRIP TEST SCH (16:56)
[2025-08-20 20:00] VITALS: BP 143/71; PULSE 80; RESP 19; TEMP 36.8; O2SAT 100
[2025-08-21] VITALS: BP 144/87; PULSE 79; RESP 19; TEMP 36.6; O2SAT 100
[2025-08-21 04:00] VITALS: BP 153/73; PULSE 77; RESP 18; TEMP 36.3; O2SAT 96
[2025-08-21 08:00] VITALS: BP 154/73; PULSE 71; RESP 18; TEMP 36.7; O2SAT 99
[2025-08-21 11:48] LABS: BASOPHILS % 0.5 % (0.0-2.0); EOSINOPHILS % 1.6 % (0.0-5.0); HEMATOCRIT. 25.9 % (36.0-48.0); HEMOGLOBIN. 8.1 g/dL (12.0-16.0); LYMPHOCYTES % 18.9 % (20.0-50.0); MEAN PLATELET VOLUME 8.1 fl (7.4-10.4); MONOCYTES % 8.1 % (2.0-8.0); NEUTROPHILS % 70.9 % (40.0-76.0); PLATELET 205 x1000/uL (130-400); RED BLOOD CELL COUNT 3.22 mill/uL (4.2-5.4); RED CELL DISTRIBUTION WIDTH 14.9 % (11.6-14.6)
[2025-08-21 12:00] VITALS: BP 152/89; PULSE 75; RESP 18; TEMP 36.4; O2SAT 98
[2025-08-21 12:13] LABS: CREATININE 1.3 mg/dL (0.6-1.0); UREA NITROGEN BLOOD 31 mg/dL (9-23)
[2025-08-21 12:15] LABS: PHOSPHORUS 2.5 mg/dL (2.5-4.9)
[2025-08-21 16:00] VITALS: BP 134/70; PULSE 72; RESP 18; TEMP 36.7; O2SAT 96
[2025-08-21 20:00] VITALS: BP 150/78; PULSE 81; RESP 18; TEMP 36.7; O2SAT 100
[2025-08-21] MEDS: ASCORBIC ACID 250 MG TABLET PO SCH (21:29)
[2025-08-22] VITALS: BP 147/70; PULSE 75; RESP 18; TEMP 36.7; O2SAT 100
[2025-08-22 03:57] VITALS: BP 151/67; PULSE 74; RESP 18; TEMP 36.6; O2SAT 98
[2025-08-22 08:00] VITALS: BP 151/89; PULSE 76; RESP 18; TEMP 36.7; O2SAT 97
[2025-08-22 08:08] LABS: BASOPHILS % 0.5 % (0.0-2.0); EOSINOPHILS % 1.9 % (0.0-5.0); HEMATOCRIT. 22.8 % (36.0-48.0); HEMOGLOBIN. 7.4 g/dL (12.0-16.0); LYMPHOCYTES % 19.5 % (20.0-50.0); MEAN PLATELET VOLUME 8.3 fl (7.4-10.4); MONOCYTES % 10.3 % (2.0-8.0); NEUTROPHILS % 67.8 % (40.0-76.0); PLATELET 196 x1000/uL (130-400); RED BLOOD CELL COUNT 2.88 mill/uL (4.2-5.4); RED CELL DISTRIBUTION WIDTH 15.4 % (11.6-14.6)
[2025-08-22 08:21] LABS: CREATININE 1.2 mg/dL (0.6-1.0)
[2025-08-22 08:22] LABS: UREA NITROGEN BLOOD 33.0 mg/dL (9-23)
[2025-08-22] MEDS: MULTIVITAMINS,THER W-MINERALS TABLET PO SCH (09:06)
[2025-08-22] MEDS: ZINC SULFATE 220 MG ( 50 ) CAPSULE PO SCH (09:14)
[2025-08-22] MEDS: ENOXAPARIN 30MG/0.3ML SYR SUBCUT ONE (09:16)
[2025-08-22 09:46] VITALS: BP 144/72; PULSE 76; RESP 18; TEMP 98
[2025-08-26] MEDS ORDERED: LIP40 PO (08:43)
== END 2025-08-22 11:00 | disposition home or self-care (01) | DRG 689 ==
LOC: ER 22:14 → EDBEDREQ 08-16 02:35 → EDBEDREQTM 08-16 02:35 → EDBEDREQSVC 08-16 02:35 → ENRESERV 08-16 03:04 → 6WST 08-16 04:06
PROVIDERS: ADMIT Student in an Organized Health Care Education/Training Program; ATTEND Student in an Organized Health Care Education/Training Program
DX: N39.0 Urinary tract infection, site not specified (principal); L89.153 Pressure ulcer of sacral region, stage 3; N17.0 Acute kidney failure with tubular necrosis; R53.2 Functional quadriplegia; I50.32 Chronic diastolic (congestive) heart failure; I13.0 Hypertensive heart and chronic kidney disease with heart failure and stage 1 through stage 4 chronic kidney disease, or unspecified chronic kidney disease; D50.9 Iron deficiency anemia, unspecified; E11.22 Type 2 diabetes mellitus with diabetic chronic kidney disease; G40.909 Epilepsy, unspecified, not intractable, without status epilepticus; H54.8 Legal blindness, as defined in USA; J44.9 Chronic obstructive pulmonary disease, unspecified; N18.9 Chronic kidney disease, unspecified; E87.6 Hypokalemia; Z74.01 Bed confinement status; Z85.3 Personal history of malignant neoplasm of breast; Z87.440 Personal history of urinary (tract) infections
CPT/HCPCS: 36415; 74176; 76830; 76856; 80048; 80305; 81003; 82962; 83735; 84100; 84145; 85025; 99285; G0378; J0696; J1650; J1815; J2185; J2405; J7040